=== PATIENT | female | born 1945 | race Caucasian/White ===

== ENCOUNTER → 2017-06-10 | Outpatient (CLI) | payer OTHER ==
[~2017-06-10] MED LIST: ASPI81TA28 PO; ATOR10TA82 PO; ATROPINE SULFATE 0.1 MG/ML 5ML SYR ONE; DOBUTamine HCL 12.5 MG/ML 20 ML VIAL ONE; ESCI10TA17 PO; METOPROLOL TARTRATE 1 MG/ML VIAL ONE; PERFLUTREN LIPID MICROSPHERE (DEFINITY) IV ONE
--- NOTE | 2017-06-10 17:30 | DOBUTAMINE ECHO ---
*NOTICE TO RECEIVING [employer] This information is strictly Confidential and protected under [place] law. [place] law prohibits you from making any further disclosure of this information unless further disclosure is expressly permitted by the written consent of the person to whom it pertains or is authorized by law. A general authorization for the release of medical or other information is not sufficient for this purpose. Hospital accepts no responsibility if the information is made available to any other person, INCLUDING THE PATIENT. Interpretation Summary * Name: SHWETA LEES Study Date: 06/10/2017 10:21 AM BP: 152/69 mmHg * Patient Location: [facility] HR: 59 * : 1945 (M/d/yyy) Gender: Female Height: 62 in * Age: 72 yrs Ethnicity: [place] Weight: 165 lb * Ordering Physician: Leonid Chong * Referring Physician: MACIE * Performed By: Delisa Varela RDCS * * Reason For Study: FATIGUE, WEAKNESS * BSA: 1.8 m2 * -- Conclusions -- * There is borderline concentric left ventricular hypertrophy. * Left ventricular systolic function is normal. * Grade I diastolic dysfunction, (abnormal relaxation pattern). * Normal dobutamine echocardiogram without evidence of inducible ischemia * Brief episode of SVT with dobutamine infusion Procedure Details * A contrast injection of Definity was performed to improve assessment of LV function. * Contrast was injected into an intravenous site in the right arm. * One vial of Definity ultrasound contrast was diluted in normal saline to a total volume of 10 ml. A total of '4' ml of solution was administered during imaging. * Lot # [id number] of Definity utilized for procedure. * Expiration date 1 AUG 10. * The attending nurse who injected the contrast agent was SELENE AKINS RN. Left Ventricular Findings with Stress * Normal dobutamine echocardiogram without evidence of inducible ischemia Brief episode of SVT with dobutamine infusion Left Ventricle * The left ventricle is normal in size. * There is borderline concentric left ventricular hypertrophy. * Ejection Fraction = 55-60%. * Left ventricular systolic function is normal. * Grade I diastolic dysfunction, (abnormal relaxation pattern). * The left ventricular wall motion is normal at rest. Right Ventricle * The right ventricle is normal in size and function. * The right ventricular systolic function is normal as assessed by tricuspid annular plane systolic excursion (TAPSE) (normal >1.5 cm). Atria * The left atrial size is normal. * Right atrial size is normal. Mitral Valve * The mitral valve leaflets appear thickened, but open well. * Significant mitral regurgitation is absent. Tricuspid Valve * The tricuspid valve is not well visualized, but is grossly normal. * Significant tricuspid regurgitation is absent. Aortic Valve * The aortic valve is normal in structure and function. * No hemodynamically significant valvular aortic stenosis. * There is no significant aortic regurgitation. Great Vessels * The aortic root is normal size. Pericardium * There is no pericardial effusion. Stress Parameters * Normal baseline electrocardiogram. * Stress ECG: No ST changes. No arrhythmias. * There was development of a brief supraventricular tachycardia during dobutamine infusion * Rest heart rate was '59' BPM. * Rest blood pressure was '152/69' * Maximum heart rate achieved was 137 bpm. * Maximum heart rate was 91 % of maximum age-predicted heart rate. * Maximum blood pressure was '211/58' * Maximum Dobutamine infusion rate was '30' mcg/kg/min. * A total of .25 mg of intravenous Atropine was used to supplement Dobutamine for heart rate response. * Dobutamine infusion was terminated due to achieving target heart rate * A total of 5 mg of IV Metoprolol was administered to reverse Dobutamine-induced tachycardia. Left Ventricular Findings with Stress * Baseline EKG was normal There was development of an SVT during dobutamine infusion There were no significant ST segment changes during dobutamine infusion Baseline echocardiographic images demonstrated normal LV function wall motion With dobutamine infusion there was appropriate augmentation of all montiel without development of wall motion abnormalities No symptoms reported during the test MMode 2D Measurements and Calculations IVSd 1.1 cm IVSs 1.3 cm LVIDd 4.4 cm LVIDs 3.1 cm LVPWd 1.3 cm LVPWs 1.7 cm IVS/LVPW 0.86 FS 28.6 % EDV(Teich) 86.0 ml ESV(Teich) 38.3 ml EF(Teich) 55.4 % EDV(cubed) 83.1 ml ESV(cubed) 30.2 ml EF(cubed) 63.7 % % IVS thick 17.7 % % LVPW thick 28.5 % LV mass(C)d 193.6 grams LV mass(C)dI 109.9 grams/m\S\2 LV mass(C)s 167.0 grams LV mass(C)sI 94.8 grams/m\S\2 SV(Teich) 47.7 ml SI(Teich) 27.1 ml/m\S\2 SV(cubed) 52.9 ml SI(cubed) 30.0 ml/m\S\2 Ao root diam 3.4 cm Ao root area 8.8 cm\S\2 LA dimension 3.5 cm LA/Ao 1.1 LVAd ap4 30.2 cm\S\2 LVLd ap4 7.9 cm EDV(MOD-sp4) 93.7 ml EDV(sp4-el) 97.3 ml LVAs ap4 17.3 cm\S\2 LVLs ap4 6.7 cm ESV(MOD-sp4) 39.8 ml ESV(sp4-el) 38.2 ml EF(MOD-sp4) 57.5 % EF(sp4-el) 60.7 % LVAd ap2 29.6 cm\S\2 LVLd ap2 8.0 cm EDV(MOD-sp2) 94.1 ml EDV(sp2-el) 92.8 ml LVAs ap2 17.2 cm\S\2 LVLs ap2 6.7 cm ESV(MOD-sp2) 38.6 ml ESV(sp2-el) 37.5 ml EF(MOD-sp2) 59.0 % EF(sp2-el) 59.5 % LVLd %diff 0.98 % EDV(MOD-bp) 94.0 ml LVLs %diff 0.69 % ESV(MOD-bp) 39.6 ml EF(MOD-bp) 57.9 % SV(MOD-sp4) 53.9 ml SI(MOD-sp4) 30.6 ml/m\S\2 SV(MOD-sp2) 55.5 ml SI(MOD-sp2) 31.5 ml/m\S\2 SV(MOD-bp) 54.4 ml SI(MOD-bp) 30.9 ml/m\S\2 SV(sp4-el) 59.1 ml SI(sp4-el) 33.6 ml/m\S\2 SV(sp2-el) 55.2 ml SI(sp2-el) 31.4 ml/m\S\2 Doppler Measurements and Calculations MV E max miguel angel 55.8 cm/sec MV A max miguel angel 76.2 cm/sec MV E/A 0.73 MV dec time 0.39 sec Ao V2 max 118.4 cm/sec Ao max PG 5.6 mmHg Ao max PG (full) 3.5 mmHg LV V1 max PG 2.1 mmHg LV V1 max 71.8 cm/sec
== END | disposition home or self-care (01) ==
LOC: C.CPL 10:16
PROVIDERS: ATTEND Internal Medicine Critical Care Medicine
DX: E78.5 Hyperlipidemia, unspecified (principal); J98.4 Other disorders of lung; R53.1 Weakness; R53.83 Other fatigue

== ENCOUNTER → 2017-06-16 | Outpatient (CLI) | payer OTHER ==
[~2017-06-16] MED LIST changes: -ATROPINE SULFATE 0.1 MG/ML 5ML SYR ONE; +CLC100 PO; -DOBUTamine HCL 12.5 MG/ML 20 ML VIAL ONE; -METOPROLOL TARTRATE 1 MG/ML VIAL ONE; +MISCCAP80; +NICO21DI35 TD; -PERFLUTREN LIPID MICROSPHERE (DEFINITY) IV ONE; +ULT/50 PO
--- NOTE | 2017-06-16 11:04 | DIAGNOSTIC IMAGING REPORT ---
CHEST SUPERDIMENSIONAL WITHOUT CLINICAL HISTORY: PULMONARY NODULE abnormal PET scan TECHNIQUE: Transaxial acquisition with multi axial reformatted images COMPARISON STUDY: PET scan 05/09/2007 Gabriel García FINDINGS: 2 mm right apical nodule not seen on the patient's prior PET scan slight interval increase in size of a irregular nodular density superior segment left lower lobe currently measuring 11 mm. Slight peribronchial thickening throughout both hemithoraces. Minimal dependent basilar bronchiectasis. No significant mediastinal or hilar adenopathy. Slight peribronchial thickening throughout both hemithoraces considered chronic. IMPRESSION: 1. Slight increase in size of a irregular parenchymal nodule superior segment left lower lobe currently measuring 11 mm. 2. 2 mm right apical nodule of uncertain significance. This was not seen in the prior study which potentially is related to technical factors. 3. Mild stable peribronchial thickening. The above report was generated using voice recognition software. It may contain grammatical, syntax or spelling errors. Electronically signed by: Andre Bhatti M.D. 06/16/2017 11:03 AM Dictated Date/Time: 06/16/2017 10:57 AM
== END | disposition home or self-care (01) ==
LOC: C.CTS 10:40
PROVIDERS: ATTEND Surgery
DX: R91.1 Solitary pulmonary nodule (principal)

== ENCOUNTER 2017-06-17 06:34 | Inpatient (IN) | payer OTHER ==
[2017-06-11 11:14] VITALS: Ht 157.5 cm; Wt 75.0 kg
[2017-06-17] VITALS (12 sets, daily range): BP systolic 117–155; BP diastolic 63–86; PULSE 62–77; TEMP 36.5–37.1; O2SAT 91–96
[~2017-06-17] VITALS: Ht 157.5 cm; Wt 75.0 kg
[~2017-06-17 06:34] MED LIST changes: -CLC100 PO; +LACTATED RINGER'S 1000ML 1,000 ML IV SCH; -MISCCAP80; -NICO21DI35 TD; -ULT/50 PO
[2017-06-17] MEDS ORDERED: EpHEDrine SULFATE INJ 50 MG/ML AMP IV PRN (06:45)
[2017-06-17] MEDS ORDERED: ONDANSETRON INJ 2 MG/ML 2 ML VIAL IV PRN ×2 (06:45→10:45)
[2017-06-17] MEDS ORDERED: ATROPINE SULFATE 0.1 MG/ML 5ML SYR IV PRN (06:45)
[2017-06-17] MEDS ORDERED: FENTANYL CITRATE INJ 50 MCG/1 ML 2 ML VIAL IV PRN (06:45)
[2017-06-17] MEDS ORDERED: MISCCAP80 ×2 (07:09)
[2017-06-17] MEDS ORDERED: NICO21DI35 TD ×2 (07:34)
[2017-06-17] MEDS ORDERED: LIDOCAINE HCL 2% 2 ML VIAL (20MG/ML) ONE ×2 (07:45→07:54)
[2017-06-17] MEDS ORDERED: PROPOFOL IV EMULSION 10 MG/ML 20 ML VIAL IV ONE (07:54)
[2017-06-17] MEDS ORDERED: DEXAMETHASONE SOD INJ 4 MG/ML VIAL ONE (07:54)
[2017-06-17] MEDS ORDERED: ROCURONIUM BROMIDE 10 MG/ML 5 ML VIAL IV ONE (07:54)
[2017-06-17] MEDS ORDERED: FENTANYL CITRATE INJ 50 MCG/1 ML 2 ML VIAL ONE ×2 (07:54→10:33)
[2017-06-17] MEDS ORDERED: ONDANSETRON INJ 2 MG/ML 2 ML VIAL ONE (07:54)
--- NOTE | 2017-06-17 08:20 | History & Physical Bridge Note ---
H&P Re-Evaluation Bridge Note: I have examined the patient, reviewed the History & Physical and in the interval since the performance of the History & Physical I have noted the following changes of clinical significance: No changes noted
[2017-06-17] MEDS ORDERED: EpHEDrine SULFATE 50MG/5ML SYR ONE (09:24)
[2017-06-17] MEDS ORDERED: CLINDAMYCIN PHOS 150 MG/ML 2 ML VIAL ONE (09:24)
[2017-06-17] MEDS ORDERED: SODIUM CHLORIDE 0.9% PF 50 ML VIAL ONE (09:36)
[2017-06-17] MEDS ORDERED: BUPIVACAINE LIPOSOME 1/3% 266 MG/20 ML VIAL INFIL ONE (09:37)
[2017-06-17] MEDS ORDERED: NEOSTIGMINE METHYLSULFATE 5 MG/5 ML SYR ONE (10:33)
[2017-06-17] MEDS ORDERED: GLYCOPYRROLATE INJ 0.2 MG/ML VIAL ONE (10:33)
--- NOTE | 2017-06-17 10:33 | DIAGNOSTIC IMAGING REPORT ---
CHEST 1 VIEW FRONTAL CLINICAL HISTORY: 72 years-old Female presenting with JATINDER BRONCH AND FIDUCIAL MARKERS. TECHNIQUE: 3 fluoroscopic spot image(s) obtained as part of an intraoperative procedure. COMPARISON: Chest CT performed on 06/16/2017. FINDINGS/IMPRESSION: Intraoperative images of the left chest with a fiducial marker. The wedge resection specimen contains the fiducial marker. Please see surgical report for further details. Fluoroscopy dosage (mGy): 11.71. Fluoroscopy time: 80.4 seconds. Number of fluoroscopic spot images: 3. Electronically signed by: Enoch Valera M.D. 06/17/2017 10:32 AM Dictated Date/Time: 06/17/2017 10:31 AM
[2017-06-17] MEDS ORDERED: ESMOLOL HCL 10 MG/ML 10 ML VIAL ONE (10:40)
[2017-06-17] MEDS ORDERED: OXYCODONE HCL IR 5 MG TAB (IMMEDIATE RELEASE) PO PRN (10:45)
[2017-06-17] MEDS ORDERED: MoRPHine SULFATE 2 MG/ML CARP IV PRN (10:45)
--- NOTE | 2017-06-17 10:49 | OPERATIVE REPORT ---
DATE OF OPERATION: 06/17/2017 PREOPERATIVE DIAGNOSES: 1. Mass superior segment left lower lobe. 2. History of vulvar squamous cell carcinoma. POSTOPERATIVE DIAGNOSIS: Same. PROCEDURE: Electromagnetic navigational bronchoscopy with marking of his left lower lobe lesion with fiducial marker and methylene blue dye. SURGEON: Dr. Haddad. ACCOUNTING PROFESSOR: Senthil Butterfield, respiratory therapy. ANESTHESIA: General anesthesia with endotracheal intubation. INDICATION FOR PROCEDURE AND FINDINGS: Kim Elam is a 72-year-old smoker who has vulvar carcinoma and underwent a vulvectomy and is scheduled for chemotherapy and radiation and her metastatic workup revealed a mass in her left lower lobe. She is an active smoker. I brought the patient to the operating room and marked her with a fiducial marker in preparation for wedge resection of this mass. PROCEDURE: The patient was brought to the operating room and laid in supine position. General anesthesia induced and endotracheal intubation was performed. After appropriate timeout had been called and clindamycin had been given the fiberoptic bronchoscope was placed through the 8.5 endotracheal tube. She had no endobronchial lesions and really no bleeding and no mucus. The navigational probe was used to register her airways. This was done without incident and then we navigated out to the mass without difficulty where we will get right out to this and with the use of an endobronchial radial ultrasound probe we were able to see we were right in the mass. I left a fiducial marker here under fluoroscopic guidance. I then injected 0.5 mL of methylene blue dye towards the pleura. This was done without incident. We then removed the bronchoscope and the navigational probe. We had no bleeding with this. She tolerated it well and is ready for her wedge resection now. I attest to the content of the Intraoperative Record and any orders documented therein. Any exception s are noted below.
--- NOTE | 2017-06-17 11:19 | DIAGNOSTIC IMAGING REPORT ---
CHEST ONE VIEW PORTABLE HISTORY: s/p wedge resection COMPARISON: Chest CT 06/16/2017. FINDINGS: Left-sided chest tube terminates within the left upper lung zone. Small left apical pneumothorax with a pleural gap of 7 mm. Lobular appearance to left hilum with associated suture material favors postoperative change. A few linear densities at the left lung base. No right-sided pneumothorax. The heart is mildly enlarged. IMPRESSION: Small left pneumothorax. Left-sided chest tube appears to be in good position. Electronically signed by: Josh Rodríguez M.D. 06/17/2017 11:17 AM Dictated Date/Time: 06/17/2017 11:16 AM
--- NOTE | 2017-06-17 11:26 | OPERATIVE REPORT ---
DATE OF OPERATION: 06/17/2017 PREOPERATIVE DIAGNOSIS: Cavitary lesion, superior segment of left lower lobe. POSTOPERATIVE DIAGNOSIS: Same. PROCEDURE: Wedge resection of superior segment of left upper lobe after marking with fiducial marker of methylene blue dye. SURGEON: Dr. Haddad. ENDLESS STEAMER TENDER: MOHSEN Boyd (Mr. Santos was in the room and working the camera and was the first assisted was there for the duration. He also closed the incisions. ANESTHESIA: General anesthesia endotracheal intubation using double lumen tube. SPECIFICS OF PROCEDURE: Kim Elam is a 72-year-old active smoker who has vulvar carcinoma and this squamous cell carcinoma was resected with a vulvectomy and she is scheduled to undergo chemotherapy and radiation and a workup showed a cystic lesion and we marked this with a fiducial marker of methylene blue dye and then turned her and did an uncomplicated thoracoscopy with two 5 mm ports and a 12 mm port. There was methylene blue in the lung, but it did not localize it well. We then used fluoroscopy and could see that the marker was included in our biopsy specimen and fired stapler several times and removed this. I discussed this with the pathology and there indeed was a cystic lesion in this wedge resection. She tolerated it well. DESCRIPTION OF THE PROCEDURE: The patient was brought to the operating room and laid in supine position. She had undergone her electromagnetic navigational bronchoscopy and her single lumen tube was switched over to a double lumen tube, arterial line was placed and she was placed in the right lateral decubitus position and her left chest was prepped and draped in usual sterile fashion. A 5 mm port was placed in the fourth interspace anterior latissimus dorsi muscle and another 5 mm port was placed 2 interspaces below the tip of the scapula and then a 12 mm port was placed about the 7th interspace anteriorly. Carbon dioxide was insufflated and we could see that there were no adhesions. I saw no real abnormality and in fact her lungs were quite pink and healthy in appearance. I then could see that there was methylene blue dye on the fairly enlarged segment of the lower lobe and this did not help us localize it. I then brought the fluoroscopy in and I was able to see that we had this fiducial marker in our biopsy specimen. I fired an Endo-ELADIO stapler several times and removed a sizable portion of the left lower lobe. Our fluoroscopy confirmed that we had removed the fiducial marker. This was sent off for frozen section after removing it with an Endobag. 266 mg of Exparel was mixed with 40 mL of normal saline for a total of 60 mL of solution and injected from the 2nd to the 11th rib with an intercostal block intrathoracically. While waiting for the frozen section, the inferior pulmonary ligament was taken down and I biopsied the level 8 and level 9 lymph nodes. There was really no bleeding here. The pathologist called and stated they did indeed have the cystic lesion, although we did not have a diagnosis at the time of this dictation. A 24-Mongolian chest tube was placed in the anterior thoracoscopy port and directed towards the apex and held in place with a heavy silk suture. A 4-0 Monocryl was used to close the incisions. She tolerated well, was extubated in the room with negligible blood loss. I attest to the content of the Intraoperative Record and any orders documented therein. Any exceptions are noted below. JONO
--- NOTE | 2017-06-17 12:08 | Anesthesiology Progress Note ---
Anesthesia Post Op Note Date & Time Jun 17, 2017 at 12:08 Vital Signs Pain Intensity: 0 Vital Signs Past 12 Hours Date Time Temp Pulse Resp B/P (MAP) Pulse Ox O2 Delivery O2 Flow Rate FiO2 06/17/17 11:40 36.2 81 21 129/65 94 Nasal Cannula 3 06/17/17 11:30 81 19 139/61 91 Nasal Cannula 3 06/17/17 11:20 84 21 127/73 95 Oxymask 10 06/17/17 11:10 81 24 135/67 97 Oxymask 10 06/17/17 11:03 36.0 78 19 152/83 97 Oxymask 10 06/17/17 07:13 36.5 65 18 155/86 96 Room Air Notes Mental Status: alert / awake / arousable, participated in evaluation Pt Amnestic to Procedure: Yes Nausea / Vomiting: adequately controlled Pain: adequately controlled Airway Patency, RR, SpO2: stable & adequate BP & HR: stable & adequate Hydration State: stable & adequate Anesthetic Complications: no major complications apparent
[2017-06-17] MEDS: ACETAMINOPHEN IV 1,000 MG in EMPTY BAG 0 ML IV SCH ×2 (13:09→20:40)
[2017-06-17] MEDS: KETOROLAC TROMETHAMINE 15 MG/ML VIAL IV. SCH ×2 (13:09→20:38)
[2017-06-17] MEDS: METOCLOPRAMIDE HCL INJ 5 MG/ML 2 ML VIAL IV. SCH ×2 (14:18→20:55)
[2017-06-17] MEDS: CLINDAMYCIN IV 900 MG in DEXTROSE 5% 100ML 100 ML IV SCH ×2 (14:29→20:39)
[2017-06-17] MEDS: D5W AND 1/2NSS 1,000 ML IV SCH (20:17)
[2017-06-17] MEDS: HYDROCORTISONE 1% CR 30 GM TUBE EXT SCH (20:38)
[2017-06-17] MEDS ORDERED: NURSING DECISION MEDICATION ORDER SCH (20:45)
[2017-06-17] MEDS: DOCUSATE SODIUM 100 MG CAP PO SCH (20:51)
[2017-06-17] MEDS ORDERED: ATORVASTATIN 10 MG TAB PO SCH (21:00)
[2017-06-18 03:20] VITALS: BP 138/79; PULSE 88; TEMP 37.1; O2SAT 98
[2017-06-18] MEDS: ACETAMINOPHEN IV 1,000 MG in EMPTY BAG 0 ML IV SCH (04:10)
[2017-06-18] MEDS: KETOROLAC TROMETHAMINE 15 MG/ML VIAL IV. SCH (04:10)
[2017-06-18] MEDS: METOCLOPRAMIDE HCL INJ 5 MG/ML 2 ML VIAL IV. SCH (05:56)
[2017-06-18] MEDS: D5W AND 1/2NSS 1,000 ML IV SCH (05:57)
[2017-06-18 06:26] LABS: PROTHROMBIN TIME (PATIENT) 10.5 SECONDS (9.0-12.0)
[2017-06-18 06:54] LABS: CREATININE 0.73 mg/dl (0.60-1.20)
--- NOTE | 2017-06-18 07:04 | DIAGNOSTIC IMAGING REPORT ---
CHEST ONE VIEW PORTABLE CLINICAL HISTORY: s/p wedge resection postoperative evaluation COMPARISON STUDY: 06/17/2017 FINDINGS: Left-sided chest tube is unchanged in location and appearance. Minimal left apical pneumothorax slightly diminished compared to the prior study with a current maximum pleural separation of 5 mm. Parenchymal density adjacent to the course of the mid left chest tube in the left perihilar region similar compared to the prior study given differences in rotation. Right lung is considered clear. IMPRESSION: Minimal left apical pneumothorax with a current maximum pleural separation of 5 mm. Study otherwise is unchanged. This represents a slight interval improvement compared to the prior study with the prior study demonstrating a 7 mm pleural separation The above report was generated using voice recognition software. It may contain grammatical, syntax or spelling errors. Electronically signed by: Andre Bhatti M.D. 06/18/2017 7:02 AM Dictated Date/Time: 06/18/2017 6:59 AM
[2017-06-18 07:12] VITALS: BP 126/78; PULSE 62; TEMP 36.7; O2SAT 91
[2017-06-18] MEDS ORDERED: ULT/50 PO ×4 (07:57→08:00)
[2017-06-18] MEDS ORDERED: CLC100 PO ×2 (07:57)
[2017-06-18 08:03] VITALS: BP 126/78; PULSE 62; TEMP 36.7; O2SAT 91
--- NOTE | 2017-06-18 08:05 | Discharge Instructions ---
Discharge Instructions Date of Service Jun 18, 2017. Admission Reason for Admission: Lung Mass Discharge Discharge Diagnosis / Problem: Lung Mass Discharge Goals Goal(s): Learn about illness Activity Recommendations Activity Limitations: as noted below Lifting Limitations: none 1. Dop not drive until cleared to do so by Dr. Haddad. 2. You may remove dressings in 3 days and shower thereafter. No tub baths. . Instructions / Follow-Up Instructions / Follow-Up 1. Office appointment with Dr. Haddad in 1 week. Office will call you with date and time of appointment. Go to hospital one hour before appointment to have a chest x-ray taken. Current Hospital Diet Patient's current hospital diet: Regular Diet Discharge Diet Recommended Diet: Regular Diet Procedures Procedures Performed: Navigational Bronchoscopy with Fiducial Markers with Methylene Blue Dye, Left Thoracoscopic Wedge Resection Pending Studies Studies pending at discharge: no Medical Emergencies . Who to Call and When: Medical Emergencies: If at any time you feel your situation is an emergency, please call 911 immediately. . Non-Emergent Contact Non-Emergency issues call your: Surgeon Call Non-Emergent contact if: you have a fever, your pain is not controlled, wound has increased drainage . "Provider Documentation" section prepared by Delon Santos. . VTE Core Measure Inpt VTE Proph given/why not?: Enoxaparin (Lovenox)SQ
--- NOTE | 2017-06-18 08:16 | DIAGNOSTIC IMAGING REPORT ---
CHEST ONE VIEW PORTABLE HISTORY: Chest tube removal COMPARISON: Chest 06/18/2017. FINDINGS: Tiny left apical pneumothorax is decreased in size. This now demonstrates a pleural gap of 2 mm. A few linear densities the left lung base suggest subsegmental atelectasis. Suture material and a small hazy airspace opacity within the left midlung zone remain unchanged and likely represent postoperative change. The left chest tube has been removed. The heart is stable in size. IMPRESSION: Status post removal of the left-sided chest tube. Tiny left apical pneumothorax is decreased in size Electronically signed by: Josh Rodríguez M.D. 06/18/2017 8:15 AM Dictated Date/Time: 06/18/2017 8:09 AM
[2017-06-18] MEDS: DOCUSATE SODIUM 100 MG CAP PO SCH (08:47)
[2017-06-18] MEDS: HYDROCORTISONE 1% CR 30 GM TUBE EXT SCH (08:47)
[2017-06-18] MEDS ORDERED: NICOTINE 21 MG/24 HR TDSY TD SCH (09:00)
[2017-06-18] MEDS ORDERED: ENOXAPARIN 40 MG/0.4 ML SYR SQ SCH (09:00)
[2017-06-18] MEDS ORDERED: ESCITALOPRAM OXALATE 10 MG TAB PO SCH (09:00)
[2017-06-18] MEDS ORDERED: ASPIRIN 81 MG ECTAB PO SCH (09:00)
--- NOTE | 2017-06-18 10:00 | DISCHARGE SUMMARY ---
DATE OF DISCHARGE: 06/18/2017 DISCHARGE DIAGNOSES: 1. Cystic mass superior segment left lower lobe. 2. History of squamous cell carcinoma of the vulva. 3. History of active cigarette smoking. HOSPITAL COURSE: Kim Elam is a 72-year-old female who is active cigarette smoking, was found to have a squamous cell carcinoma of her vulva, underwent a vulvectomy about a month ago at [place]. She is scheduled for radiation therapy postoperatively as well as some chemotherapy. Family is a bit unsure of this and she has not been evaluated by medical oncologist at this point. She is scheduled to see Dr. Rashaun Silva. I had a long talk with the patient and his family, we elected to proceed with wedge resection for complete staging and to see what the etiology of this mass was. On 06/17/2017 the patient underwent electromagnetic navigational bronchoscopy. We marked this mass with a fiducial marker and methylene blue dye. Upon doing the thoracoscopy it could be seen that the methylene blue did not really help much as it was a broad area had been sustained but with the fiducial marker, we were able to localize this and wedged the mass out. Frozen section showed a cystic mass that was very small; however, the cells do appear abnormal and I spoke to Dr. Muro and he felt that this may well represent metastatic squamous cell carcinoma, which will be consistent with her clinical presentation. We will have to wait and see what the final slides show. She did very well overnight and was on room air, ambulating in the hallway, tolerating a regular diet. Her x-ray looked great. We pulled her chest tube on the morning after surgery as she had no air leak and very little drainage. Her post-procedure x-ray showed no evidence of pneumothorax or pleural effusion. She was discharged home on postop day 1. I will see her back in the office next week with an x-ray and to do a wound check and give her her pathology results.
== END 2017-06-18 09:55 | disposition home or self-care (01) | DRG 165 ==
LOC: C.ACU 06:34 → C.MSN 08:20 → ENRESERV 11:25
PROVIDERS: ADMIT Surgery; ATTEND Surgery
PROC: 0BBG4ZZ Excision of Left Upper Lung Lobe, Percutaneous Endoscopic Approach (ICD-10-PCS; principal; 2017-06-17 08:45)
DX: R91.8 Other nonspecific abnormal finding of lung field (principal); F17.210 Nicotine dependence, cigarettes, uncomplicated; F41.9 Anxiety disorder, unspecified; E78.5 Hyperlipidemia, unspecified; Z86.73 Personal history of transient ischemic attack (TIA), and cerebral infarction without residual deficits; Z80.0 Family history of malignant neoplasm of digestive organs; R91.1 Solitary pulmonary nodule

== ENCOUNTER → 2017-06-23 | Outpatient (CLI) | payer OTHER ==
[~2017-06-23] MED LIST changes: +AMOX875T PO; +CLC100 PO; -LACTATED RINGER'S 1000ML 1,000 ML IV SCH; +MISCCAP80; +NICO21DI35 TD; +PRED10TA PO; +ULT/50 PO
--- NOTE | 2017-06-23 13:07 | DIAGNOSTIC IMAGING REPORT ---
CHEST 2 VIEWS ROUTINE CLINICAL HISTORY: 72 years-old Female presenting with PULMONARY NODULE. TECHNIQUE: PA and lateral views of the chest were obtained. COMPARISON: 06/18/2017. FINDINGS: Atherosclerosis of the aortic arch. Cardiac silhouette normal in size. Bandlike opacities at the left lung base as well as a potential suture margin in the left mid lung. No pleural effusion or pneumothorax. Degenerative changes of the thoracic spine. Cholecystectomy clips noted. IMPRESSION: 1. Postsurgical changes of the left lung with minimal atelectasis. No acute cardiopulmonary disease. Electronically signed by: Enoch Valera M.D. 06/23/2017 1:05 PM Dictated Date/Time: 06/23/2017 1:01 PM
== END | disposition home or self-care (01) ==
LOC: C.RAD 12:35
PROVIDERS: ATTEND Surgery
DX: R91.1 Solitary pulmonary nodule (principal)

== ENCOUNTER 2017-07-16 05:30 | Inpatient (IN) | payer OTHER ==
[~2017-07-16] VITALS: Ht 157.5 cm; Wt 74.9 kg
[2017-07-16] VITALS (16 sets, daily range): BP systolic 104–147; BP diastolic 50–75; PULSE 65–80; TEMP 36.5–36.8; O2SAT 90–96
[~2017-07-16 05:30] MED LIST changes: -AMOX875T PO; -CLC100 PO; -PRED10TA PO; -ULT/50 PO
[2017-07-16] MEDS ORDERED: LACTATED RINGER'S 1000ML 1,000 ML IV SCH (06:00)
[2017-07-16] MEDS ORDERED: FENTANYL CITRATE INJ 50 MCG/1 ML 2 ML VIAL ONE ×2 (06:51→08:48)
[2017-07-16] MEDS ORDERED: MIDAZOLAM HCL 1 MG/ML 2ML VIAL ONE (06:51)
[2017-07-16] MEDS ORDERED: SODIUM CHLORIDE 0.9% PF 50 ML VIAL ONE ×2 (06:58→06:59)
[2017-07-16] MEDS ORDERED: BUPIVACAINE LIPOSOME 1/3% 266 MG/20 ML VIAL INFIL ONE (06:58)
[2017-07-16] MEDS ORDERED: SODIUM CHLORIDE 0.9% INJ 10 ML VIAL ONE (06:59)
[2017-07-16] MEDS ORDERED: BUPIVACAINE 0.5 % 5 MG/1 ML MPF 30ML VIAL ONE (06:59)
[2017-07-16] MEDS ORDERED: GENTAMICIN SULFATE 40 MG/ML 2 ML VIAL ONE (08:53)
[2017-07-16] MEDS ORDERED: VANCOMYCIN HCL 1000MG/20ML VIAL ONE (08:53)
[2017-07-16] MEDS ORDERED: NEOSTIGMINE METHYLSULFATE 5 MG/5 ML SYR ONE (09:05)
[2017-07-16] MEDS ORDERED: CEFAZOLIN SOD 1 GM VIAL ONE (09:05)
[2017-07-16] MEDS ORDERED: DEXAMETHASONE SOD INJ 4 MG/ML VIAL ONE (09:05)
[2017-07-16] MEDS ORDERED: LIDOCAINE HCL 2% 2 ML VIAL (20MG/ML) ONE (09:05)
[2017-07-16] MEDS ORDERED: PROPOFOL IV EMULSION 10 MG/ML 20 ML VIAL IV ONE (09:05)
[2017-07-16] MEDS ORDERED: GLYCOPYRROLATE INJ 0.2 MG/ML VIAL ONE (09:05)
[2017-07-16] MEDS ORDERED: ONDANSETRON INJ 2 MG/ML 2 ML VIAL ONE ×2 (09:05→10:46)
[2017-07-16] MEDS ORDERED: PHENYLEPHRINE HCL INJ 10 MG/ML VIAL ONE (09:09)
[2017-07-16] MEDS ORDERED: EpHEDrine SULFATE INJ 50 MG/ML AMP IV PRN (09:15)
[2017-07-16] MEDS ORDERED: HYDROmorphone INJ 0.5 MG/0.5 ML SYR IV PRN (09:15)
[2017-07-16] MEDS ORDERED: ATROPINE SULFATE 0.1 MG/ML 5ML SYR IV PRN (09:15)
[2017-07-16] MEDS ORDERED: ONDANSETRON INJ 2 MG/ML 2 ML VIAL IV PRN ×2 (09:15→11:45)
[2017-07-16] MEDS ORDERED: SURGICEL ABSORB HEMOSTAT 2IN X 14IN TOP ONE (09:24)
[2017-07-16] MEDS ORDERED: EpHEDrine SULFATE 50MG/5ML SYR ONE (10:58)
--- NOTE | 2017-07-16 11:17 | [facility] Post Operative Brief Note ---
Immediate Operative Summary Operative Date Jul 16, 2017. Pre-Operative Diagnosis Primary carcinoma squamous cell left lower lobe Post-Operative Diagnosis Same Procedure(s) Performed Left Video Assisted Thoracoscopy with Lower Lobectomy and Mediastinal Lymphadenectomy with Application of Stimulan Beads Surgeon Dr Haddad Sql Architect Surgeon(s) None Estimated Blood Loss 50ml Findings Consistent with Post-Op Diagnosis Specimens A. L11 lymph node X2 B. L12 lymph node C. L10 lymph node D. Level 5 lymph node Frozen section #1 left lower lobe for bronchial margins sent out at 1030. Results phoned to Dr Haddad from pathologist. Anesthesia Type General
[2017-07-16] MEDS ORDERED: OXYCODONE/ACETAMINOPHEN 5-325 TAB PO PRN (11:45)
[2017-07-16] MEDS ORDERED: MoRPHine SULFATE 2 MG/ML CARP IV PRN (11:45)
[2017-07-16] MEDS ORDERED: LARYING-O-JET KIT (LTA) ONE (12:03)
[2017-07-16] MEDS: FENTANYL CITRATE INJ 50 MCG/1 ML 2 ML VIAL IV PRN ×4 (12:30→12:46)
[2017-07-16] MEDS ORDERED: ALBUT/IPRATROP 3MG/0.5MG NEB 3 ML VIAL INH PRN (12:45)
--- NOTE | 2017-07-16 12:53 | DIAGNOSTIC IMAGING REPORT ---
CHEST ONE VIEW PORTABLE CLINICAL HISTORY: Lobectomy. Lung cancer. COMPARISON STUDY: Chest radiograph June 23, 2017. FINDINGS: A left chest tube is in place. There is left mid and lower lung airspace opacity. Left lung surgical staple line is noted. There is a suspected small left apical pneumothorax. There is extensive gas within the left breast. Radiodense beads are noted within the operative bed of the left chest wall/breast. There is a suspected small left pleural effusion. In addition, note is made of a tube which projects over the right lower lung. This likely extends to the right mainstem bronchus and is within a segmental bronchus of the right lower lobe. There is no right pneumothorax. IMPRESSION: 1. Right-sided tube, likely extending through the right mainstem bronchus with tip in a segmental bronchus of the right lower lobe. This finding was discussed with Dr. Haddad. This tube was subsequently removed. 2. Postsurgical findings within the left lung with left lung volume loss, left basilar opacity and a trace left apical pneumothorax with left chest tube in place. Left breast gas with radiodense beads within the operative bed. Electronically signed by: Javier Najera M.D. 07/16/2017 12:51 PM Dictated Date/Time: 07/16/2017 12:42 PM
--- NOTE | 2017-07-16 13:51 | Anesthesiology Progress Note ---
Anesthesia Post Op Note Date & Time Jul 16, 2017 at 13:48 Vital Signs Pain Intensity: 4 Vital Signs Past 12 Hours Date Time Temp Pulse Resp B/P (MAP) Pulse Ox O2 Delivery O2 Flow Rate FiO2 07/16/17 13:05 36.2 74 14 127/66 95 Oxymask 10 07/16/17 13:00 71 10 95 Mask 10.0 07/16/17 12:55 72 14 117/61 95 Oxymask 10 07/16/17 12:45 67 14 120/61 96 Oxymask 10 07/16/17 12:35 67 14 102/65 92 Oxymask 10 07/16/17 12:25 36.5 68 14 118/62 93 Oxymask 10 07/16/17 12:15 70 14 121/65 94 Oxymask 10 07/16/17 12:05 72 14 129/71 94 Oxymask 10 07/16/17 11:55 75 14 134/68 94 Oxymask 10 07/16/17 11:47 36.2 79 14 161/80 94 Oxymask 10 07/16/17 06:00 36.8 65 20 147/75 95 Room Air Notes Mental Status: alert / awake / arousable, participated in evaluation Pt Amnestic to Procedure: Yes Nausea / Vomiting: adequately controlled Pain: adequately controlled Airway Patency, RR, SpO2: stable & adequate BP & HR: stable & adequate Hydration State: stable & adequate Anesthetic Complications: no major complications apparent Anesthetic Complications: Please see anesthesia progress note for review of intraop and postoperative course.
--- NOTE | 2017-07-16 14:26 | Anesthesiology Progress Note ---
Anesthesia Progress Note Date of Service Jul 16, 2017. Progress Notes Kim Elam is a 72 you female who presented today for left lower lobectomy with Dr. Haddad. Prior to going to the OR, an arterial line was placed in her left radial artery on the first attempt using the seldinger technique. Prior to placement, the arms was prepped with chlorhexidine and draped. The line was placed sterilely by myself wearing hat, mask, and sterile gloves. The site was infiltrated with 1 cc of 1% lidocaine prior to placement. After threading the catheter there was return of pulsatile BRB. The line was taped in place. After placement, distal perfusion was confirmed in the fingers. The patient tolerated placement without complications. After arterial line placement, the patient was taken to the operating room. ASA monitors were applied and she was preoxygnated. She was induced via IV without complication and was an easy mask. Airway was first intrumented with # 3 glidescope with a grade 1 view of the cords, but the 37 left double lumen tube would not pass smoothly beyond the soft palate. The end of the double lumen was noted to be bloody upon removal. Decision was made to attempt placement with a MAC 3 to allow direct visualization of the soft palate and down to the cords during placement. Again, we were unable to advance the double lumen beyond the soft palate. The airway was noted to be slightly bloody. Prior to this, the airway procedures were performed by the [employer] for the case. At this time, I took over the airway. Decision was made to switch to the fiberoptic to allow placement. Despite multiple attempts, advancement of the fiberoptic beyond the tongue was notable for an abnormal quantity of soft tissue that prevented the fiberoptic from advancing smoothly. I made the decision to visualize again with the glidescope and place a single lumen tube followed by an exchange catheter to enable replacement of the single lumen with the desired double lumen tube. While inserting the glidescope, the airway was notable for a large amount of friable, lobulated tissue that was above the epiglottis and in the region of the vallecula. I suspect that this tissue is what was preventing tube advancement as well as obstructing airway visualization under fiberoptic. I was able to place an 8.0 single lumen and confirmed placement. At this time, I discussed the airway with Dr. Haddad, including the pros and cons of proceeding with the case and possible difficulty with airway swelling complicating extubation. It was felt that the airway was already at risk for swelling due to multiple intubation attempts and that it was best to proceed with double lumen placement and the case. A Cook exchange catheter was advanced through the 8.0 tube and left in place after removal of the single lumen ETT. The 37 left double lumen was then placed over the cook and slowly advanced while visualizing placement with the glidescope. Advancement of the double lumen tube was difficult, but possible using gentle, persistent pressure. Tube placement was then confirmed via the fiberoptic. Throughout the management of the airway, the patient remained easy to ventilate and the patient was continually well saturated. At the end of the case, the patient was opening eyes to voice and pulling TV greater than 300 with an adequate RR. The ETT balloons were deflated and the patient had a leak. Therefore, decision was made to trial extubation. The cook catheter was placed down the tracheal lumen and left in place after removing the double lumen. This was taped to the left side of the patients face. After extubation the patient was responding appropriately and breathing without complications. She was taken to PACU and observed for 30 minutes. Airway was auscultated and notable for lower airway wheezing, but upper airway was clear. The patient maintained adequate oxygenation on oxymask. Decision was made to remove the cook catheter. The Cook catheter was removed without complication. The patient was given a duoneb and observed for another 30 minutes in PACU. She continued to maintain her airway and oxygenated well. Therefore, she was transferred to the SICU for overnight observation. Mercy White MD, PhD
[2017-07-16] MEDS ORDERED: D5W AND 1/2NSS 1,000 ML IV SCH (14:30)
--- NOTE | 2017-07-16 14:58 | OPERATIVE REPORT ---
DATE OF OPERATION: 07/16/2017 PREOPERATIVE DIAGNOSIS: Squamous cell carcinoma of the left lower lobe. POSTOPERATIVE DIAGNOSIS: Same. PROCEDURE: 1. Thoracoscopic left lower lobectomy. 2. Mediastinal lymph node dissection. SURGEON: Dr. Haddad. ANESTHESIA: General anesthesia with endotracheal intubation with a double lumen tube. SPECIFICS OF PROCEDURE: This is a 72-year-old female with a long history of cigarette smoking and who was initially referred to me after she underwent a left lobectomy with lymph node dissection and found to have a metastatic disease and 1 inguinal lymph node. She was scheduled for chemotherapy and radiation, underwent a metastatic workup and was found to have a cystic lesion about a centimeter in diameter in the left lower lobe. I performed a thoracoscopic wedge resection and this was seem to represent a carcinoma on frozen section. 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 I discussed her at the multidisciplinary cancer conference and it was felt that the best thing to do would be to proceed with lobectomy. I had a long talk with the patient and her family, in particularly her daughter. On 07/16/2016, the patient was brought to the operating room and underwent an uncomplicated thoracoscopic left lower lobectomy. I biopsied several lymph nodes including her level 5, 10, 11, and 12. 8 and 9 have been biopsied during the original thoracoscopy. I did not really see a level 6 node. The patient tolerated the procedure well, was extubated in the room. There were some issues initially in intubating her as it appeared she had some fibrous tissue anterior to the epiglottis. We did this with GlideScope and regular laryngoscope as well as a laryngoscope. There was initially some bleeding; however, this settled down and we elected to go ahead and proceed with the procedure. She was extubated in the room, although a tube exchanger in place while we moved to her PACU. She tolerated it well. Her margins were negative on frozen section. DESCRIPTION OF PROCEDURE: The patient brought to the operating room, laid in supine position. General anesthesia was induced. A bronchoscopy was attempted. It was not difficult to see the cords and we could get a single lumen tube where the double lumen tube was difficult. In addition, the patient had bleeding from what appeared to be some friable tissue anterior to the epiglottis. We had a long talk about this with anesthesia and we elected to proceed with the surgery. A tube exchanger was placed on the single lumen and a double lumen tube. When then under GlideScope guidance really without difficulty. The patient was then ready for surgery. She was turned in the right lateral decubitus position and left chest prepped and draped in usual sterile fashion. After appropriate timeout had been given and prophylactic antibiotics administered, the patient had her ports placed. I opened up her anterior at about the eighth interspace, initial incision as well as the fourth interspace incision and lengthened both a bit. I did made another posterior port and did not use her initial posterior port as I felt I wanted to be a bit more posterior. In fact, I went fairly posterior and put a 5 mm port with CO2 and we could see that really there were very little in the way of adhesions, although there were adhesions between the lower lobe and the upper lobe where we had done the biopsy. I also made a fourth port site down in the mid axillary line at about the eighth interspace just above the diaphragm. We then proceeded to take down the inferior pulmonary ligament again. This was actually more of scar tissue. After taking all this down, I was able to see the pulmonary vein quite nicely. We freed it up all the way up to the pulmonary artery posteriorly. I also saw the bronchus. I took out several lymph nodes in this area and this helped free up part of dissection. I then allowed the lung to be pulled posterior and went anterior and freed up the vein from anterior. Endo-ELADIO stapler was fired. This freed up the bronchus quite nicely. I identified the lingual bronchus and fired Endo-ELADIO stapler distal to this. It should be noted because of the prior surgery and incomplete fissure anteriorly, it was difficult to get to the artery. I was able to come up to it from posterior and from inferior and got above it and fired an Endo-ELADIO stapler across the continuation of pulmonary artery to the left lower lobe distal to the lingual branch; however, there was another branch to the superior segment which I divided with an Endo-ELADIO stapler. This freed up; however, there was an incomplete fissure between posteriorly and I ended up firing an Endo-ELADIO stapler several times and finally got the lower lobe out. It was placed in an Endobag and removed. It was sent for bronchial margins on frozen section. While waiting, I dissected out the hilum and got the more anteriorly and biopsied a level 10 node as well as a level 11 and 12. Several of these were sent off. I then dissected out the level 5 node in the aortopulmonary window; however, I did not see any periaortic nodes. We then inflated the lung and tested for leaking and there was none. A 266 mg of Exparel were mixed with 30 mL of 0.5% bupivacaine and about 110 mL of normal saline and then I used a small bore needle to inject from the 2nd to the 11th interspace for intercostal field block. I then injected this with an 18 gauge needle into all 4 of the incisions including the chest tube site. A chest tube was placed in the anterior incision and directed towards the apex under thoracoscopic guidance. Sutured in place with a heavy silk suture. I then used 0 Vicryl to close the muscle layers of the fourth interspace incision as well as a single stitch to reapproximate the muscle and the other 2 incisions. I then mixed 5 mL of pharmaceutical grade calcium sulfate 500 mg of vancomycin and 240 mg of gentamicin. This was performed a plate-like paste, I placed it on a mold. When the bead was set, I then bent the mold and removed them. I then used these to pack each of the incisions prior to closing with 4-0 Monocryl. Included this around the chest tube also. The patient developed evidence of a cellulitis around couple of her incisions after her surgery last month. She has a history of diabetes and eczema and has some skin breakdown and I was a bit concerned due to the fact that she has cellulitis around her 5 mm port in case it lasted about half an hour, a month ago. For this reason, I felt implanting the antibiotic beads would be helpful. A 4-0 Monocryl then used to close the incision and we tested the chest tube as well. There was no evidence of air leak, antimicrobials agents were placed on the incisions and the patient was then extubated after being turned into the supine position. It should be noted that a tube changer was placed through the endotracheal tube and left in place, while she was transported to the postanesthesia care unit. She appeared to be stable. I attest to the content of the Intraoperative Record and any orders documented therein. Any exception s are noted below.
[2017-07-16 15:04] LABS: CREATININE 0.75 mg/dl (0.60-1.20)
[2017-07-16] MEDS: METOCLOPRAMIDE HCL INJ 5 MG/ML 2 ML VIAL IV. SCH ×2 (15:29→22:12)
[2017-07-16] MEDS: KETOROLAC TROMETHAMINE 15 MG/ML VIAL IV. SCH ×2 (15:29→22:12)
--- NOTE | 2017-07-16 16:46 | Critical Care Consultation ---
Critical Care Consultation Date of Consultation: Jul 16, 2017. Attending Physician: Scott Haddad MD Reason for Consultation: Postop monitoring after left lower lobe lobectomy. History of Present Illness 72-year-old female with a history of vulvar squamous cell cancer recently resected at [facility], history of left lower lobe superior segment nodule underwent left lower lobe lobectomy by Dr. Haddad today, the procedure went uneventful however anesthesia were concerned about her airways as she had 2 procedures within a month. And in both procedures it was noted to be a difficult airway. Apparently according to anesthesia, the vocal cords were visualized but the patient does have significant amount of tissue and adhesions in the upper airways and and felt that placement of the ET tube probably related also to abnormal airways. However the patient was extubated successfully without any respiratory compromise. She denies any stridor or shortness of breath. Patient was transferred to the ICU and she was asymptomatic except for pain at the surgical incision which is understandable. She did not have any nausea or vomiting, no abdominal pain, no heartburn reported. She was still feeling dizzy but likely coming out of general anesthesia. The patient did not have any weakness in her arms or legs, she was able to follow commands and answer questions properly, and her oxygen level has been maintained with O2 sats 95%. Apparently, similar situation occurred a month ago when she underwent a procedure with wedge resection. The patient did not have difficulty being extubating but she was difficult to intubate. Currently the patient is hemodynamically stable and does not have any symptoms. Past Medical/Surgical History History of vulvar squamous cell cancer status post resection at [facility] in 2017. Adenocarcinoma of the lung status post left lower lobe lobectomy on this admission. Active smoker. Possible COPD. Borderline diabetes. Hyperlipidemia. Social History Smoking Status: Current Every Day Smoker Allergies Coded Allergies: Latex1 -Allergic Contact Dermititis (Verified Allergy, Unknown, REDNESS, ) NO KNOWN DRUG ALLERGIES (Verified Allergy, Unknown, NONE, 07/14/17) Home Medications Scheduled Aspirin (Aspirin Ec), 81 MG PO QAM Atorvastatin (Lipitor), 10 MG PO HS Escitalopram (Lexapro), 10 MG PO QAM Nicotine (Nicoderm Cq 21MG Patch), 1 PATCH TD DAILY Probiotic Product (Probiotic), PM Current Inpatient Medications Current Inpatient Medications Medications (Trade) Dose Ordered Sig/Rodney Route Start Time Stop Time Status Last Admin Dose Admin Lactated Ringer's 1,000 ml @ 15 mls/hr Q24H IV 07/16/17 06:00 07/17/17 05:59 07/16/17 06:33 15 MLS/HR Enoxaparin Sodium (Lovenox Inj) 40 mg DAILY SQ 07/17/17 10:00 08/16/17 09:59 Dextrose/Sodium Chloride 1,000 ml @ 100 mls/hr Q10H IV 07/16/17 14:30 08/15/17 14:29 07/16/17 15:28 100 MLS/HR Ondansetron HCl (Zofran Inj) 4 mg Q4H PRN IV 07/16/17 11:45 08/15/17 11:44 Docusate Sodium (coLACE CAP) 100 mg BID PO 07/16/17 21:00 08/15/17 20:59 Ketorolac Tromethamine (Toradol Inj) 15 mg Q8H IV. 07/16/17 15:00 07/18/17 07:01 07/16/17 15:29 15 MG Metoclopramide HCl (Reglan Inj) 10 mg Q8 IV. 07/16/17 15:00 08/15/17 14:59 07/16/17 15:29 10 MG Oxycodone/ Acetaminophen (Percocet 5-325mg Tab) Q3H PRN PO 07/16/17 11:45 07/30/17 11:44 Morphine Sulfate (MoRPHine SULFATE INJ) Q1H PRN IV 07/16/17 11:45 07/30/17 11:44 Aspirin (Ecotrin Tab) 81 mg QAM PO 07/17/17 09:00 08/16/17 08:59 Atorvastatin Calcium (Lipitor Tab) 10 mg HS PO 07/16/17 21:00 08/15/17 20:59 Escitalopram Oxalate (Lexapro Tab) 10 mg QAM PO 07/17/17 09:00 08/16/17 08:59 Nicotine (Nicoderm Cq 21MG Patch) 1 patch DAILY TD 07/17/17 09:00 08/16/17 08:59 Albuterol/ Ipratropium (Duoneb) 3 ml ONE PRN INH 07/16/17 12:45 07/17/17 12:44 Review of Systems Constitutional: No fever, No chills, No sweats, No weight loss, No weakness, No fatigue, No problem reported Eyes: No worsening of vision, No eye pain, No redness, No discharge, No diplopia, No problem reported ENT: No hearing loss, No unusual epistaxis, No nasal symptoms, No sore throat, No tinnitus, No dental problems, No trouble swallowing, No problem reported Respiratory: + cough, + shortness of breath Cardiovascular: + chest pain (postop.), No orthopnea, No PND, No edema, No claudication, No palpitations, No problem reported Abdomen: No pain, No nausea, No vomiting, No diarrhea, No constipation, No GI bleeding, No problem reported Musculoskeletal: No joint pain, No muscle pain, No swelling, No calf pain, No problem reported Neurologic: No memory loss, No paralysis, No weakness, No numbness/tingling, No vertigo, No balance problems, No problem reported Psychiatric: No depression symptoms, No anhedonism, No anxiety, No insomnia, No substance abuse, No problem reported Endocrine: No fatigue, No excessive thirst, No excessive urination, No problem reported Physical Exam Date Time Temp Pulse Resp B/P (MAP) Pulse Ox O2 Delivery O2 Flow Rate FiO2 07/16/17 15:00 75 17 113/54 (73) 90 Oxymask 8.0 07/16/17 14:46 80 16 118/62 (80) 93 Oxymask 8.0 114/55 (74) 07/16/17 14:31 77 19 126/60 (82) 96 Oxymask 10.0 07/16/17 14:16 36.5 73 16 115/59 (77) 95 Oxymask 10.0 07/16/17 14:01 113/63 (80) 07/16/17 13:05 36.2 74 14 127/66 95 Oxymask 10 07/16/17 13:00 71 10 95 Mask 10.0 07/16/17 12:55 72 14 117/61 95 Oxymask 10 07/16/17 12:45 67 14 120/61 96 Oxymask 10 07/16/17 12:35 67 14 102/65 92 Oxymask 10 07/16/17 12:25 36.5 68 14 118/62 93 Oxymask 10 07/16/17 12:15 70 14 121/65 94 Oxymask 10 07/16/17 12:05 72 14 129/71 94 Oxymask 10 07/16/17 11:55 75 14 134/68 94 Oxymask 10 07/16/17 11:47 36.2 79 14 161/80 94 Oxymask 10 07/16/17 06:00 36.8 65 20 147/75 95 Room Air General Appearance: well-appearing, no apparent distress Eyes: PERRLA, EOMI ENT: normal nasal exam Neck: normal range of motion, no tenderness, trachea midline, no stridor, supple, no thyromegaly Respiratory: breath sounds normal, clear to auscultation Cardiovasular: normal S1S2, no M/G/R, no murmur Lower Extremities: no edema Neuro: alert, oriented x 3, normal motor exam Laboratory Results Last 24 Hours Test 07/16/17 06:39 07/16/17 12:04 07/16/17 14:40 Bedside Glucose 156 mg/dl 194 mg/dl Prothrombin Time 10.4 SECONDS Prothromb Time International Ratio 1.0 Creatinine 0.75 mg/dl Est Creatinine Clear Calc Drug Dose 66.2 ml/min Estimated GFR () 93.6 Estimated GFR (Non- 80.8 Diagnostic Results I have reviewed all her labs as well as her CAT scan in addition to the chest CT prior to the procedure. In the chest x-ray after the procedure. Sapir segment left lower lobe lesion was noted on the CAT scan with emphysematous changes. No lymphadenopathy. No other lesions. The chest x-ray postop confirm the position of chest tube on the left. Assessment & Plan #1 postop day 0 status post left lower lobe lobectomy for non-small cell lung cancer. #2 vulvar squamous cell carcinoma resection done in 2017. #3 borderline diabetes, compromised by D5W infusion. #4 upper airway anomaly, concerning for abnormal tissues and adhesions according to anesthesia, currently the patient is extubated without difficulty. Plan: #1 we will monitor the patient in the ICU. #2 titrate oxygen to nasal cannula. #3 we will obtain CAT scan of the neck to further evaluate the thyroid gland for possible nodularity compromising the airways. #4 I will continue the patient with bronchodilators. #5. The D5W and start oral intake. #6 I will continue with hydration. #7 if the CAT scan of the neck showed any abnormality, ENT consult can be obtained. #8 glucose control. #9 Case discussed with the staff and with the family at the bedside. In details. Critical care time spent with the patient was 35 minutes.
[2017-07-16] MEDS ORDERED: GLUCAGON FOR INJ 1 MG VIAL SQ PRN (17:45)
[2017-07-16] MEDS ORDERED: DEXTROSE 50% 50 ML SYR IV PRN (17:45)
[2017-07-16] MEDS ORDERED: GLUCOSE 10 TABS/TUBE PO PRN (17:45)
[2017-07-16] MEDS ORDERED: GLUCOSE 40% GEL 15 GM TUBE PO PRN (17:45)
[2017-07-16] MEDS ORDERED: PHARMACY GLYCEMIC MGMT CONSULT SCH (17:50)
[2017-07-16] MEDS ORDERED: LANTUS PER UNIT CHARGE SQ ONE (18:15)
[2017-07-16] MEDS: SODIUM CHLORIDE 0.45% 1000ML 1,000 ML IV SCH (18:20)
--- NOTE | 2017-07-16 18:23 | Pharmacy Progress Note ---
Glycemic Control Intl Consult Date of Service Jul 16, 2017. Scope Glycemic Pharmacist consulted by Dr Uriostegui on 07/16/17 for glycemic control and to write orders per [facility] inpatient glycemic control protocol Objective Weight (Kilograms): 75.000 Accuchecks BSG (last 24hrs): Test 07/16/17 06:39 07/16/17 12:04 07/16/17 16:37 Bedside Glucose 156 mg/dl (70-90) 194 mg/dl (70-90) 198 mg/dl (70-90) Laboratory Data (last 24hrs) Test 07/16/17 14:40 Creatinine 0.75 mg/dl Recent Pertinent Medications Outpatient Anti-diabetic Regimen: * None * A1c ordered with AM labs Risk Factors for Insulin Resistance: * Steroids: Dexamethasone 8mg IV x1 today in OR * IVF: D51/2 was running for about an hour, stopped now * Recent Surgery: s/p LLL lobectomy * Diet: Type 2 DM Assessment & Plan ASSESSMENT: * 72 year old female, unknown glycemic control as outpatient, no diagnosis or antidiabetic meds * s/p LLL Lobectomy for non-small cell lung cancer, active smoker * Will begin weight based with stress of 2 Novolog CF and CR and give supplemental dose of Lantus now for IV steroid coverage, and check BSGs overnight PLAN FOR INPATIENT GLYCEMIC CONTROL: * Basal insulin with LANTUS 10 units SQ x 1 now * Novolog 4 units SQ x 1 now to cover last BSG of 198mg/dl and some food eating from tray * Correctional Insulin with NOVOLOG per scale ACHS and overnight at 0000 and 0400 * Goal Range: Low 140 mg/dL - High 180 mg/dL * Correction Factor: 30 mg/dL/unit * Nutritional / Prandial insulin per carb ratio of 1 unit per 10 grams CHO consumed * Please note that the plan above was derived based on current level of insulin resistance and hospital stress. These recommendations are appropriate for inpatient admission only. Plan of care upon discharge will need to be reassessed to avoid potential outpatient hypo/hyperglycemia. Thank you.
[2017-07-16] MEDS ORDERED: INSULIN ASPART 100 UNITS/ML 3 ML PEN SC ONE (18:30)
[2017-07-16] MEDS: INSULIN ASPART 100 UNITS/ML 3 ML PEN SC SCH ×3 (18:42→23:42)
[2017-07-16] MEDS: DOCUSATE SODIUM 100 MG CAP PO SCH (20:07)
[2017-07-16] MEDS: ATORVASTATIN 10 MG TAB PO SCH (20:07)
[2017-07-17] VITALS (26 sets, daily range): BP systolic 106–149; BP diastolic 48–73; PULSE 67–85; TEMP 36.7–38.1; O2SAT 93–98; Ht 157.5 cm; Wt 74.9 kg
[2017-07-17] MEDS: INSULIN ASPART 100 UNITS/ML 3 ML PEN SC SCH ×5 (04:00→21:00)
[2017-07-17 05:41] LABS: BASO % 0.1 %; BASO ABS # 0.01 K/uL (0-0.2); HEMATOCRIT 40.3 % (37-47); HEMOGLOBIN 13.6 g/dL (12.0-16.0); IG# 0.04 K/uL (0.00-0.02); LYMPH % 8.6 %; MEAN CELL VOLUME 98.3 fL (80-100); MEAN CORPUSCULAR HEMOGLOBIN 33.2 pg (25-34); MEAN CORPUSCULAR HGB CONC 33.7 g/dl (32-36); MEAN PLATELET VOLUME 10.3 fL (7.4-10.4); MONO % 6.1 %; MONO ABS # 0.99 K/uL (0.11-0.59); NEUT ABS # 13.88 K/uL (1.4-6.5); PLATELET COUNT 209 K/uL (130-400); RED CELL DISTRIBUTION WIDTH CV 13.6 % (11.5-14.5); RED CELL DISTRIBUTION WIDTH SD 48.9 fL (36.4-46.3); WHITE BLOOD COUNT 16.32 K/uL (4.8-10.8)
[2017-07-17] MEDS: KETOROLAC TROMETHAMINE 15 MG/ML VIAL IV. SCH ×3 (05:57→23:00)
[2017-07-17] MEDS: METOCLOPRAMIDE HCL INJ 5 MG/ML 2 ML VIAL IV. SCH ×3 (05:57→21:38)
[2017-07-17] MEDS: SODIUM CHLORIDE 0.45% 1000ML 1,000 ML IV SCH ×2 (06:02→20:25)
[2017-07-17 06:16] LABS: CALCIUM 8.8 mg/dl (8.5-10.1); CREATININE 0.72 mg/dl (0.60-1.20); POTASSIUM 4.2 mmol/L (3.5-5.1)
[2017-07-17] MEDS: DOCUSATE SODIUM 100 MG CAP PO SCH ×2 (08:14→21:38)
[2017-07-17] MEDS: ESCITALOPRAM OXALATE 10 MG TAB PO SCH (08:14)
[2017-07-17] MEDS: ASPIRIN 81 MG ECTAB PO SCH (08:14)
[2017-07-17] MEDS: ENOXAPARIN 40 MG/0.4 ML SYR SQ SCH (08:15)
[2017-07-17] MEDS: NICOTINE 21 MG/24 HR TDSY TD SCH (08:15)
--- NOTE | 2017-07-17 08:36 | DIAGNOSTIC IMAGING REPORT ---
CHEST ONE VIEW PORTABLE CLINICAL HISTORY: lobectomy postoperative COMPARISON STUDY: 07/16/2017 FINDINGS: Progressive increase in density left hemithorax with mildly progressive cardiomediastinal silhouette shift to the left. Unchanged subcutaneous emphysematous change. Slight repositioning of a left-sided chest tube. No significant postprocedural pneumothorax currently. Lungs clear. Removal of the tube in the right basilar lung region. IMPRESSION: 1. Mild increase in density throughout the left hemithorax with mild increase in cardiomediastinal silhouette shift to the left. 2. Left-sided chest tube in position with no significant pneumothorax currently. The above report was generated using voice recognition software. It may contain grammatical, syntax or spelling errors. Electronically signed by: Andre Bhatti M.D. 07/17/2017 8:34 AM Dictated Date/Time: 07/17/2017 8:32 AM
[2017-07-17 08:54] LABS: HEMOGLOBIN A1C 5.8 % (4.5-5.6)
--- NOTE | 2017-07-17 13:16 | DIAGNOSTIC IMAGING REPORT ---
CHEST ONE VIEW PORTABLE CLINICAL HISTORY: Follow up left lung atelectasis. COMPARISON STUDY: Chest radiograph July 17, 2017 at 8:21 AM. FINDINGS: A left chest tube remains in place. There is no pneumothorax. Gas within left chest wall extensive gas within the left breast is noted as well as radiodense beads. Extensive left lung opacification is noted with evidence of volume loss, including leftward mediastinal shift. This has progressed since exam of November or 09/12/2017 at 8:21 AM. Right lung is clear. There is minimal left lung aeration. IMPRESSION: 1. Progression of extensive left lung opacification with volume loss suggestive of subtotal left lung atelectasis. 2. Left chest tube in place. No pneumothorax. Gas within the left chest wall and breast. Electronically signed by: Javier Najera M.D. 07/17/2017 1:15 PM Dictated Date/Time: 07/17/2017 1:12 PM
[2017-07-17] MEDS ORDERED: FENTANYL CITRATE INJ 50 MCG/1 ML 2 ML VIAL ONE (15:48)
[2017-07-17] MEDS ORDERED: MIDAZOLAM HCL 5 MG/ML 1 ML VIAL ONE (15:49)
--- NOTE | 2017-07-17 15:51 | Critical Care Progress Note ---
Critical Care Progress Note Date of Service Jul 17, 2017. Attending Dr. Uriostegui Subjective The patient is improving, however she does have poor cough reflex, she does not have any chest pain reported, her oxygenation has been maintained and she was ambulatory. Objective Chest x-ray was reviewed which revealed total atelectasis of the left lung mainly the left upper lobe. The patient did not have any hypoxia however she is having difficulty mobilizing her secretions due to splinting from pain. Assessment & Plan #1 non-small cell lung CA status post left lower lobe lobectomy. #2 atelectasis of the left upper lobe. #3 COPD. #4 history of thyroid nodule. #5 history of difficulty placing ET tube. Plan: #[address] the patient on incentive spirometry and a N valve. #[address] Haddad, I would perform bronchoscopy for pulmonary toilet. #3 continue with current treatments. #4 watch for WBC. #5 bronchodilators. #6 ambulate. #7 chest tube management per Dr. Haddad. Thank you, will follow. Data Medications: Current Inpatient Medications Medications (Trade) Dose Ordered Sig/Rodney Route Start Time Stop Time Status Last Admin Dose Admin Enoxaparin Sodium (Lovenox Inj) 40 mg DAILY SQ 07/17/17 10:00 08/16/17 09:59 07/17/17 08:15 40 MG Ondansetron HCl (Zofran Inj) 4 mg Q4H PRN IV 07/16/17 11:45 08/15/17 11:44 Docusate Sodium (coLACE CAP) 100 mg BID PO 07/16/17 21:00 08/15/17 20:59 07/17/17 08:14 100 MG Ketorolac Tromethamine (Toradol Inj) 15 mg Q8H IV. 07/16/17 15:00 07/18/17 07:01 07/17/17 05:57 15 MG Metoclopramide HCl (Reglan Inj) 10 mg Q8 IV. 07/16/17 15:00 08/15/17 14:59 07/17/17 13:45 10 MG Oxycodone/ Acetaminophen (Percocet 5-325mg Tab) Q3H PRN PO 07/16/17 11:45 07/30/17 11:44 Morphine Sulfate (MoRPHine SULFATE INJ) Q1H PRN IV 07/16/17 11:45 07/30/17 11:44 07/17/17 11:58 2 MG Aspirin (Ecotrin Tab) 81 mg QAM PO 07/17/17 09:00 08/16/17 08:59 07/17/17 08:14 81 MG Atorvastatin Calcium (Lipitor Tab) 10 mg HS PO 07/16/17 21:00 08/15/17 20:59 07/16/17 20:07 10 MG Escitalopram Oxalate (Lexapro Tab) 10 mg QAM PO 07/17/17 09:00 08/16/17 08:59 07/17/17 08:14 10 MG Nicotine (Nicoderm Cq 21MG Patch) 1 patch DAILY TD 07/17/17 09:00 08/16/17 08:59 07/17/17 08:15 1 PATCH Sodium Chloride 1,000 ml @ 75 mls/hr [id number] IV 07/16/17 17:45 08/15/17 17:44 07/17/17 06:02 75 MLS/HR Insulin Aspart (novoLOG ASPART) SLIDING SCALE If C... ACHS SC 07/16/17 18:00 08/15/17 17:59 07/17/17 08:21 1 UNITS Glucose (Glucose 40% Gel) 15-30 GRAMS 15 GRAMS... UD PRN PO 07/16/17 17:45 08/15/17 17:44 Glucose (Glucose Chew Tab) 4-8 Tablets 4 Tabl... UD PRN PO 07/16/17 17:45 08/15/17 17:44 Dextrose (Dextrose 50% 50ML Syringe) 25-50ML OF 50% DW IV FOR... UD PRN IV 07/16/17 17:45 08/15/17 17:44 Glucagon (Glucagon Inj) 1 mg UD PRN SQ 07/16/17 17:45 08/15/17 17:44 Miscellaneous Information (Consult Glycemic Management Pharmacy) 1 ea UD N/A 07/16/17 17:50 08/15/17 17:49 I & O: 24-Hour Column 07/18/17 07:59 Intake Total 736 ml Output Total 200 ml Balance 536 ml Vital Signs: Date Time Temp Pulse Resp B/P (MAP) Pulse Ox O2 Delivery O2 Flow Rate FiO2 07/17/17 12:00 36.7 78 21 149/64 (92) 95 3.0 07/17/17 12:00 95 Nasal Cannula 3.0 07/17/17 11:00 84 18 137/63 (87) 93 07/17/17 10:00 80 16 138/62 (87) 95 07/17/17 09:00 74 13 134/57 (82) 97 3.0 07/17/17 08:11 72 20 107/73 (84) 95 07/17/17 08:00 37.3 69 20 123/52 (75) 93 3.0 07/17/17 08:00 93 Nasal Cannula 3.0 07/17/17 07:00 71 13 106/49 (68) 95 07/17/17 06:00 72 18 132/53 (79) 95 Nasal Cannula 3.0 07/17/17 05:00 69 12 126/49 (74) 95 Nasal Cannula 3.0 07/17/17 04:00 36.8 70 12 129/53 (78) 95 Nasal Cannula 3.0 132/62 (85) 07/17/17 04:00 93 Nasal Cannula 3.0 07/17/17 02:00 70 17 115/49 (71) 96 Nasal Cannula 2.0 120/59 (79) 07/17/17 01:00 72 19 122/52 (75) 94 Nasal Cannula 126/60 (82) 07/17/17 00:01 36.8 67 19 111/56 (74) 94 Nasal Cannula 2.0 116/48 (70) 07/16/17 23:59 93 Nasal Cannula 2.0 07/16/17 23:00 69 12 120/50 (73) 94 Nasal Cannula 2.0 110/59 (76) 07/16/17 22:00 69 18 120/50 (73) 94 Nasal Cannula 2.0 07/16/17 21:00 68 16 127/61 (83) 94 Nasal Cannula 2.0 121/51 (74) 07/16/17 20:00 93 Nasal Cannula 2.0 Humidified Oxygen 07/16/17 20:00 36.7 74 16 125/57 (79) 93 Nasal Cannula 2.0 07/16/17 19:00 76 16 127/59 (81) 94 Nasal Cannula 2.0 07/16/17 18:00 74 20 122/57 (78) 94 Nasal Cannula 2.0 07/16/17 17:00 73 17 104/52 (69) 92 Nasal Cannula 2.0 07/16/17 16:00 36.6 69 16 118/56 (76) 96 Nasal Cannula 2.0 07/16/17 16:00 93 Oxymask 2.0 Laboratory Results: Last 24 Hours Test 07/16/17 16:37 07/16/17 20:27 07/16/17 23:33 07/17/17 04:03 Bedside Glucose 198 mg/dl 160 mg/dl 143 mg/dl 149 mg/dl Test 07/17/17 05:27 07/17/17 11:48 White Blood Count 16.32 K/uL Red Blood Count 4.10 M/uL Hemoglobin 13.6 g/dL Hematocrit 40.3 % Mean Corpuscular Volume 98.3 fL Mean Corpuscular Hemoglobin 33.2 pg Mean Corpuscular Hemoglobin Concent 33.7 g/dl Platelet Count 209 K/uL Mean Platelet Volume 10.3 fL Neutrophils (%) (Auto) 85.0 % Lymphocytes (%) (Auto) 8.6 % Monocytes (%) (Auto) 6.1 % Eosinophils (%) (Auto) 0.0 % Basophils (%) (Auto) 0.1 % Neutrophils # (Auto) 13.88 K/uL Lymphocytes # (Auto) 1.40 K/uL Monocytes # (Auto) 0.99 K/uL Eosinophils # (Auto) 0.00 K/uL Basophils # (Auto) 0.01 K/uL RDW Standard Deviation 48.9 fL RDW Coefficient of Variation 13.6 % Immature Granulocyte % (Auto) 0.2 % Immature Granulocyte # (Auto) 0.04 K/uL Arterial Blood pH 7.35 Arterial Blood Partial Pressure CO2 44 mmHg Arterial Blood Partial Pressure O2 72 mm/Hg Arterial Blood HCO3 24 mmol/L Arterial Blood Oxygen Saturation 93.3 % Arterial Blood Base Excess -1.6 mEq/L Arterial Blood Gas Delivery 3L Juan R Test TOÑITO Sodium Level 136 mmol/L Potassium Level 4.2 mmol/L Chloride Level 107 mmol/L Carbon Dioxide Level 24 mmol/L Anion Gap 5.0 mmol/L Blood Urea Nitrogen 12 mg/dl Creatinine 0.72 mg/dl Est Creatinine Clear Calc Drug Dose 68.9 ml/min Estimated GFR () 98.3 Estimated GFR (Non- 84.9 BUN/Creatinine Ratio 17.4 Random Glucose 161 mg/dl Estimated Average Glucose 120 mg/dl Hemoglobin A1c 5.8 % Calcium Level 8.8 mg/dl Bedside Glucose 140 mg/dl
[2017-07-17] MEDS ORDERED: FENTANYL CITRATE INJ 50 MCG/1 ML 2 ML VIAL IV SCH (16:00)
[2017-07-17] MEDS ORDERED: LIDOCAINE HCL 2% 2 ML VIAL (20MG/ML) INFIL SCH (16:00)
[2017-07-17] MEDS ORDERED: LIDOCAINE HCL 2% VISC SOLN 20 ML UDC MT ONE (16:00)
[2017-07-17] MEDS ORDERED: MIDAZOLAM HCL 1 MG/ML 2ML VIAL IV SCH (16:00)
--- NOTE | 2017-07-17 16:23 | Procedure Note ---
Procedure Note Procedure Date Jul 17, 2017. Procedure Description Procedure Name: Bronchoscopy Procedure time out: side/site verified, patient ID confirmed, correct procedure Consent obtained: verbal Performed by: attending Indications: diagnostic, therapeutic Contraindications: none Description: The patient was monitored in the ICU, the patient underwent the procedure monitor with ICU style, consent obtained verbally from the patient agreed to the procedure, family were at the bedside, the patient was localized with 10 mL of 2% lidocaine nebulized in addition to viscous lidocaine, total of 20 mL of 1 % lidocaine was injected throughout the entire procedure, the patient received total of 50 mics of fentanyl and 2 mg of Versed throughout the entire procedure. The bronchoscope passed through the bite block, the findings as follows: #1 large amount of lymphoid tissue at the base of her tongue likely hypertroph I 'd lymphoid tissue, cannot rule out low-grade lymphoma. #21 cord are mobile. #3 tracheal bronchial tree examined from RB1 to RB10 and LB 1 to LB 10, and noted the absence of LB 7-10, status post left lower lobe lobectomy. #4 large amount of bloody secretions noted occluding the takeoff of the LB1-LB6 suctioned to clear, specimen was sent for Gram stain and culture. #5 thick secretions was removed entirely. No saline was injected. #6 tolerated the procedure very well. No immediate competition. #7 repeat chest x-ray.
--- NOTE | 2017-07-17 17:10 | DIAGNOSTIC IMAGING REPORT ---
CHEST ONE VIEW PORTABLE HISTORY: 72 years-old Female post bronch status post bronchoscopy. Follow-up study in a patient with a left-sided chest tube. COMPARISON: Chest radiograph of same day at 12:55 PM TECHNIQUE: Portable AP view of the chest FINDINGS: Cardiac silhouette again appears enlarged. Atherosclerosis of the aorta. Left-sided chest tube is again seen with distal tip projecting over the left lung apex. Unchanged subcutaneous emphysema of the left chest wall. Radiodense beads are also seen within the left chest wall breast region. Left hemithorax is again nearly completely opacified with volume loss and mild leftward mediastinal shift. Only minimal aeration is noted within the left lung, notably within the left lung apex. Right lung is generally clear with mild pulmonary vascular congestion. No definite pneumothorax. Bones appear grossly intact. Degenerative changes are seen within the shoulders and spine. IMPRESSION: 1. Persistent near complete opacification of the left hemithorax with volume loss suggesting atelectasis. 2. Unchanged position of left-sided chest tube with extensive subcutaneous emphysema of the left chest wall. 3. No pneumothorax identified. The above report was generated using voice recognition software. It may contain grammatical, syntax or spelling errors. Electronically signed by: Fran Abbott M.D. 07/17/2017 5:09 PM Dictated Date/Time: 07/17/2017 5:06 PM
[2017-07-17] MEDS: AMPICILLIN/SULBACTAM SOD INJ 1,500 MG in SODIUM CHLORIDE 0.9% 100ML 100 ML IV SCH (18:36)
--- NOTE | 2017-07-17 19:20 | SURGERY PROGRESS NOTE ---
DATE: 07/17/2017 Ms. Elam was seen today on 07/17/2017, 1 day status post a thoracoscopic left lower lobectomy with mediastinal lymph node dissection. The patient has been ambulating in the hallway. She is on supplemental oxygen. She is tolerating house diet. She has no air leak. Her drainage has decreased and serous in nature. I am a bit concerned, however. She has decreased breath sounds on the left and upon reviewing her chest x-ray, it could be seen that she has volume loss with some collapse. I suspect we have some mucous plugging or some old blood from the time of surgery. Dr. Uriostegui has kindly agreed to perform a bronchoscopy; however, she has already eaten breakfast so it has to be later on in the day. She has good cough, but I do not believe she is bringing up enough of sputum. We will check a chest x-ray later on and probably proceed with a therapeutic bronchoscopy later today. I had a long talk with the patient and her family. I have to say I am pretty happy with her progress. The ability of her to get up out of bed and ambulate is excellent.
[2017-07-17] MEDS: ATORVASTATIN 10 MG TAB PO SCH (21:38)
[2017-07-18] VITALS (42 sets, daily range): BP systolic 92–167; BP diastolic 41–93; PULSE 70–91; TEMP 36.5–37.9; O2SAT 91–97
[2017-07-18] MEDS: AMPICILLIN/SULBACTAM SOD INJ 1,500 MG in SODIUM CHLORIDE 0.9% 100ML 100 ML IV SCH ×4 (00:02→17:58)
[2017-07-18] MEDS: METOCLOPRAMIDE HCL INJ 5 MG/ML 2 ML VIAL IV. SCH (06:19)
--- NOTE | 2017-07-18 07:42 | DIAGNOSTIC IMAGING REPORT ---
CHEST ONE VIEW PORTABLE CLINICAL HISTORY: f/u THERESA collapse COMPARISON STUDY: Chest radiograph July 17, 2017 4:43 PM. FINDINGS: A left sided chest tube is in place. Gas within the left chest wall/left breast is noted with radiodense beads. Left lung atelectasis has progressed. There is suspected left lung collapse. Left apical lucency favors a pneumothorax. Left hemithorax following loss is noted. Right lung is clear. IMPRESSION: Progression of left lung collapse with relative left apical lucency which raises the possibility of an apical pneumothorax with left chest tube in place. Electronically signed by: Javier Najera M.D. 07/18/2017 7:41 AM Dictated Date/Time: 07/18/2017 7:38 AM
[2017-07-18] MEDS: INSULIN ASPART 100 UNITS/ML 3 ML PEN SC SCH ×4 (07:55→20:50)
[2017-07-18 07:59] LABS: BASO % 0.1 %; BASO ABS # 0.02 K/uL (0-0.2); EOS % 0.2 %; EOS ABS # 0.03 K/uL (0-0.5); HEMATOCRIT 39.4 % (37-47); HEMOGLOBIN 13.1 g/dL (12.0-16.0); IG# 0.03 K/uL (0.00-0.02); LYMPH % 11.1 %; LYMPH ABS # 1.52 K/uL (1.2-3.4); MEAN CELL VOLUME 98.7 fL (80-100); MEAN CORPUSCULAR HEMOGLOBIN 32.8 pg (25-34); MEAN CORPUSCULAR HGB CONC 33.2 g/dl (32-36); MEAN PLATELET VOLUME 10.2 fL (7.4-10.4); MONO % 9.6 %; MONO ABS # 1.32 K/uL (0.11-0.59); NEUT % 78.8 %; NEUT ABS # 10.83 K/uL (1.4-6.5); PLATELET COUNT 197 K/uL (130-400); RED CELL DISTRIBUTION WIDTH CV 13.8 % (11.5-14.5); RED CELL DISTRIBUTION WIDTH SD 49.8 fL (36.4-46.3); WHITE BLOOD COUNT 13.75 K/uL (4.8-10.8)
--- NOTE | 2017-07-18 08:24 | SURGERY PROGRESS NOTE ---
DATE: 07/18/2017 Kim Elam was seen this morning on 07/18/2017. She is sitting up in the chair. She has not eating yet. Her oxygen requirements went up. She is on 4 liters of O2 now. She has no air leak and her drainage has decreased. She has some serous drainage. The patient does have pain when she coughs but otherwise her pain control has been fairly good. Her vital signs have been stable. Upon physical exam, she has markedly decreased breath sounds on the left. Her incisions all looked very good. She has a regular rate and rhythm of her heart in the 80s. Her abdomen is nice and soft. She has been eating well. Her sequential compression devices are in place. She is voiding without a Chang catheter. Neurologically she is completely intact. On reviewing her labs, her white count has come down to 13,750 with a hemoglobin of 13.1. Her blood sugars have been very well controlled. She is on ampicillin sulbactam, but the Gram stain is not back from the bronchoscopy results yesterday. Her x-ray shows complete opacification of the left side. I was involved with the bronchoscopy with Dr. Uriostegui yesterday and she just has swelling. He did suction out some bloody mucus. ASSESSMENT AND PLAN: Postoperative day #2, status post thoracoscopic left lower lobectomy and mediastinal lymph node dissection. The patient looks great and she is walking around the hallways; however, I am quite concerned about this atelectasis. She does not have an anatomical problem. She simply has edema. I discussed this with Dr. Uriostegui today. He is going to start steroids on her. Removing the chest tube has helped. She coughed much better after I removed it and she actually has better breath sounds on the left. Dr. Uriostegui will perform a bronchoscopy on her later today. We are going to keep her in the ICU overnight.
[2017-07-18 08:31] LABS: CALCIUM 9.2 mg/dl (8.5-10.1); CREATININE 0.61 mg/dl (0.60-1.20); POTASSIUM 3.8 mmol/L (3.5-5.1)
[2017-07-18] MEDS ORDERED: LANTUS PER UNIT CHARGE SQ SCH (09:00)
[2017-07-18] MEDS: DOCUSATE SODIUM 100 MG CAP PO SCH ×2 (09:00→20:50)
[2017-07-18] MEDS: ESCITALOPRAM OXALATE 10 MG TAB PO SCH (09:00)
[2017-07-18] MEDS: ASPIRIN 81 MG ECTAB PO SCH (09:00)
[2017-07-18] MEDS: ENOXAPARIN 40 MG/0.4 ML SYR SQ SCH (09:22)
[2017-07-18] MEDS: NICOTINE 21 MG/24 HR TDSY TD SCH (09:23)
[2017-07-18] MEDS: KETOROLAC TROMETHAMINE 15 MG/ML VIAL IV. SCH (09:35)
[2017-07-18] MEDS: SODIUM CHLORIDE 0.45% 1000ML 1,000 ML IV SCH (09:36)
[2017-07-18] MEDS ORDERED: MIDAZOLAM HCL 5 MG/ML 1 ML VIAL ONE (10:33)
[2017-07-18] MEDS ORDERED: FENTANYL CITRATE INJ 50 MCG/1 ML 2 ML VIAL ONE (10:34)
--- NOTE | 2017-07-18 11:27 | Critical Care Progress Note ---
Critical Care Progress Note Date of Service Jul 18, 2017. Attending Dr. Uriostegui Subjective The patient remained stable overnight, she was still having difficulty coughing up her secretions. She denies any chest pain, no shortness of breath, she remains weak to ambulate. Objective Chest x-ray was reviewed which revealed total atelectasis of the left lung mainly the left upper lobe. The patient did not have any hypoxia however she is having difficulty mobilizing her secretions due to splinting from pain. 07/18/2017, the patient continues to cough but unable to raise her sputum. Her chest tube has been removed. Chest x-ray revealed partial inflation of the left upper lobe. The patient was planned to have bronchoscopy again for pulmonary toilet. Her physical exam revealed vital signs are stable except for blood pressure in the range of 160 systolic, O2 saturation 97% on nasal cannula, oral thrush, no stridor, heart examination S1-S2 regular rate and rhythm, lungs with evidence breath sounds on the left, subcutaneous emphysema but minimal, abdomen is benign no edema. Neurologically she is intact. Assessment & Plan #1 non-small cell lung CA status post left lower lobe lobectomy. #2 atelectasis of the left upper lobe. #3 COPD. #4 history of thyroid nodule. #5 history of difficulty placing ET tube. #6 recurrent atelectasis of the left upper lobe. Status post bronchoscopy with secretion removal. Repeat chest x-ray revealed partial information and remains with atelectasis and mediastinal shift. Plan: #[address] the patient on incentive spirometry and acapella valve. #[address] Haddad, I would perform bronchoscopy for pulmonary toilet. We'll repeat a bronchoscopy today per Dr Haddad. #3 continue with current treatments. #4 watch for WBC. Although WBC are going down. #5 bronchodilators. #6 ambulate. #7 chest tube removed by Dr. Haddad. #8 I will start the patient on a short course of Solu-Medrol 40 mg IV every 12 hours. #9 continue with pulmonary toilet aggressively. #10 Unasyn 1.5 g IV every 6 hours prophylactically for treatment of colored sputum from yesterday that was suctioned. This is to avoid developing pneumonia and only lobe and the left. Thank you, will follow. Data Medications: Current Inpatient Medications Medications (Trade) Dose Ordered Sig/Rodney Route Start Time Stop Time Status Last Admin Dose Admin Enoxaparin Sodium (Lovenox Inj) 40 mg DAILY SQ 07/17/17 10:00 08/16/17 09:59 07/18/17 09:22 40 MG Ondansetron HCl (Zofran Inj) 4 mg Q4H PRN IV 07/16/17 11:45 08/15/17 11:44 Docusate Sodium (coLACE CAP) 100 mg BID PO 07/16/17 21:00 08/15/17 20:59 07/17/17 21:38 100 MG Metoclopramide HCl (Reglan Inj) 10 mg Q8 IV. 07/16/17 15:00 08/15/17 14:59 07/18/17 06:19 10 MG Oxycodone/ Acetaminophen (Percocet 5-325mg Tab) Q3H PRN PO 07/16/17 11:45 07/30/17 11:44 Morphine Sulfate (MoRPHine SULFATE INJ) Q1H PRN IV 07/16/17 11:45 07/30/17 11:44 07/17/17 11:58 2 MG Aspirin (Ecotrin Tab) 81 mg QAM PO 07/17/17 09:00 08/16/17 08:59 07/17/17 08:14 81 MG Atorvastatin Calcium (Lipitor Tab) 10 mg HS PO 07/16/17 21:00 08/15/17 20:59 07/17/17 21:38 10 MG Escitalopram Oxalate (Lexapro Tab) 10 mg QAM PO 07/17/17 09:00 08/16/17 08:59 07/17/17 08:14 10 MG Nicotine (Nicoderm Cq 21MG Patch) 1 patch DAILY TD 07/17/17 09:00 08/16/17 08:59 07/18/17 09:23 1 PATCH Sodium Chloride 1,000 ml @ 75 mls/hr [id number] IV 07/16/17 17:45 08/15/17 17:44 07/18/17 09:36 75 MLS/HR Insulin Aspart (novoLOG ASPART) SLIDING SCALE If C... ACHS SC 07/16/17 18:00 08/15/17 17:59 07/17/17 08:21 1 UNITS Glucose (Glucose 40% Gel) 15-30 GRAMS 15 GRAMS... UD PRN PO 07/16/17 17:45 08/15/17 17:44 Glucose (Glucose Chew Tab) 4-8 Tablets 4 Tabl... UD PRN PO 07/16/17 17:45 08/15/17 17:44 Dextrose (Dextrose 50% 50ML Syringe) 25-50ML OF 50% DW IV FOR... UD PRN IV 07/16/17 17:45 08/15/17 17:44 Glucagon (Glucagon Inj) 1 mg UD PRN SQ 07/16/17 17:45 08/15/17 17:44 Miscellaneous Information (Consult Glycemic Management Pharmacy) 1 ea UD N/A 07/16/17 17:50 08/15/17 17:49 Ampicillin Sodium/ Sulbactam Sodium 1500 mg/Sodium Chloride 104 ml @ 200 mls/hr Q6H IV 07/17/17 18:00 07/24/17 17:59 07/18/17 06:19 200 MLS/HR Methylprednisolone Sodium Succinate 40 mg/Syringe 0.64 ml @ 1.5 mls/min Q12H IV 07/18/17 11:30 08/17/17 11:29 UNV Nystatin (Mycostatin Susp) 10 ml QID PO 07/18/17 13:00 07/25/17 12:59 UNV Vital Signs: Date Time Temp Pulse Resp B/P (MAP) Pulse Ox O2 Delivery O2 Flow Rate FiO2 07/18/17 11:13 Nasal Cannula 07/18/17 11:10 74 11 102/59 (73) 95 Nasal Cannula 5.0 07/18/17 11:05 76 14 105/59 (74) 92 Nasal Cannula 5.0 07/18/17 11:01 80 17 103/47 (65) 91 07/18/17 11:00 37.9 78 14 123/70 (87) 91 Nasal Cannula 5.0 07/18/17 10:59 78 12 92/41 (58) 91 07/18/17 10:59 37.9 78 12 136/62 (86) 91 Oxymask 07/18/17 10:50 90 14 149/85 97 Oxymask 8.0 148/56 07/18/17 10:45 80 13 147/75 97 Oxymask 8.0 140/57 07/18/17 10:41 82 18 146/58 97 Oxymask 07/18/17 08:00 Nasal Cannula 3.0 07/18/17 08:00 37.0 77 24 133/56 (81) 95 Nasal Cannula 3.0 07/18/17 06:00 78 15 145/68 (93) 95 Nasal Cannula 4.0 07/18/17 05:00 75 15 138/69 (92) 96 Nasal Cannula 4.0 07/18/17 04:35 93 Nasal Cannula 2.0 07/18/17 04:00 37.5 78 14 130/66 (87) 95 Nasal Cannula 3.0 07/18/17 03:00 75 13 121/62 (81) 96 Nasal Cannula 3.0 07/18/17 02:00 37.5 77 12 121/61 (81) 96 Nasal Cannula 3.0 07/18/17 01:00 78 12 125/61 (82) 96 Nasal Cannula 3.0 07/18/17 00:40 93 Nasal Cannula 2.0 07/18/17 00:00 84 13 131/65 (87) 95 Nasal Cannula 3.0 07/17/17 23:00 85 14 136/70 (92) 96 Nasal Cannula 3.0 07/17/17 22:25 84 13 131/69 (89) 96 Nasal Cannula 3.0 07/17/17 22:00 84 12 133/66 (88) 96 Nasal Cannula 3.0 07/17/17 21:00 84 16 138/67 (90) 96 Nasal Cannula 3.0 07/17/17 20:06 93 Nasal Cannula 2.0 07/17/17 20:00 76 15 118/62 (80) 96 Nasal Cannula 3.0 07/17/17 19:12 38.1 80 20 122/62 (82) 97 Nasal Cannula 3.0 07/17/17 19:00 77 14 121/53 (75) 96 Nasal Cannula 3.0 07/17/17 16:54 Oxymask 07/17/17 16:00 37.7 76 19 146/61 (89) 98 Nasal Cannula 3.0 07/17/17 15:45 96 Nasal Cannula 3.0 07/17/17 15:00 72 21 129/54 (79) 95 07/17/17 14:00 73 12 134/56 (82) 95 07/17/17 13:00 78 16 145/66 (92) 93 07/17/17 12:00 36.7 78 21 149/64 (92) 95 3.0 07/17/17 12:00 95 Nasal Cannula 3.0 Laboratory Results: Last 24 Hours Test 07/17/17 11:48 07/17/17 15:56 07/17/17 21:31 07/18/17 07:08 Bedside Glucose 140 mg/dl 125 mg/dl 158 mg/dl 138 mg/dl Test 07/18/17 07:49 White Blood Count 13.75 K/uL Red Blood Count 3.99 M/uL Hemoglobin 13.1 g/dL Hematocrit 39.4 % Mean Corpuscular Volume 98.7 fL Mean Corpuscular Hemoglobin 32.8 pg Mean Corpuscular Hemoglobin Concent 33.2 g/dl Platelet Count 197 K/uL Mean Platelet Volume 10.2 fL Neutrophils (%) (Auto) 78.8 % Lymphocytes (%) (Auto) 11.1 % Monocytes (%) (Auto) 9.6 % Eosinophils (%) (Auto) 0.2 % Basophils (%) (Auto) 0.1 % Neutrophils # (Auto) 10.83 K/uL Lymphocytes # (Auto) 1.52 K/uL Monocytes # (Auto) 1.32 K/uL Eosinophils # (Auto) 0.03 K/uL Basophils # (Auto) 0.02 K/uL RDW Standard Deviation 49.8 fL RDW Coefficient of Variation 13.8 % Immature Granulocyte % (Auto) 0.2 % Immature Granulocyte # (Auto) 0.03 K/uL Sodium Level 136 mmol/L Potassium Level 3.8 mmol/L Chloride Level 108 mmol/L Carbon Dioxide Level 22 mmol/L Anion Gap 7.0 mmol/L Blood Urea Nitrogen 14 mg/dl Creatinine 0.61 mg/dl Est Creatinine Clear Calc Drug Dose 82.1 ml/min Estimated GFR () 106.5 Estimated GFR (Non- 91.9 BUN/Creatinine Ratio 23.1 Random Glucose 145 mg/dl Calcium Level 9.2 mg/dl
--- NOTE | 2017-07-18 11:34 | Procedure Note ---
Procedure Note Procedure Date Jul 18, 2017. Procedure Description Procedure Name: Bronchoscopy . Procedure time out: side/site verified, patient ID confirmed, correct procedure Consent obtained: written Performed by: attending Description: Bronchoscopy was done due to atelectasis of the left upper lobe likely due to mucoid impaction. Consent obtained from the patient, risk and benefit explained details. The patient was monitored in the ICU with ICU style of monitoring. She was stable for the procedure. Risk and benefit explained details of the patient and agreed to the procedure. The procedure was done through the oral cavity using a bite block. The bronchoscope passed through the oral cavity and the findings as follows: #1 again noted lymphoid tissue with hypertrophy at the base of her genioglossus muscle. #2 vocal cords are moving appropriately. #3 petechial changes in the proximal trachea likely from cough. #4 absence of the left lower lobe and postop changes noted. #5 minimal amount of thick secretions suctioned from the takeoff of the left upper lobe. #6 lidocaine neb 10 mL 1% was used and 10 mL throughout the entire procedure of 1% lidocaine was used as well. #7 bronchial wash up to 10 mL of normal saline used to irrigate the rhonchus of the left upper lobe. #8 chest x-ray reviewed after the procedure with inflammation of left upper lobe still with haziness, and the mediastinum shifted back again to a natural position. #9 the patient received total of 50 mics of fentanyl and 2 mg of Versed throughout the entire procedure. Patient tolerated the procedure very well. No immediate complication. Family notified.
--- NOTE | 2017-07-18 11:38 | DIAGNOSTIC IMAGING REPORT ---
CHEST ONE VIEW PORTABLE CLINICAL HISTORY: Post bronchoscopy. COMPARISON STUDY: Chest radiograph July 18, 2017 at 7:02 AM. FINDINGS: The left chest tube has been removed. There is a possible small left apical pneumothorax. Extensive left lung opacification is noted with volume loss. There is minimal left lung aeration. This has slightly improved since exam performed earlier today. Left chest wall/breast soft tissue gas with radiodense beads is noted. IMPRESSION: 1. Interval removal of the left-sided chest tube. Suspected small left apical pneumothorax. 2. Extensive left hemithorax opacification with volume loss with minimal left lung aeration, slightly improved since prior exam. Electronically signed by: Javier Najera M.D. 07/18/2017 11:37 AM Dictated Date/Time: 07/18/2017 11:35 AM
[2017-07-18] MEDS: METHYLPREDNISOLONE IV 40 MG in SYRINGE 0 ML IV SCH (12:10)
[2017-07-18] MEDS ORDERED: NURSING VERBAL MED ORDER ONE (12:15)
[2017-07-18] MEDS: NYSTATIN SUSP 500,000 U/5 ML UDC PO SCH ×3 (13:00→20:51)
--- NOTE | 2017-07-18 13:50 | Pharmacy Progress Note ---
Pharmacy Glycemic Short Note 2 Date of Service Jul 18, 2017. OUTPATIENT ANTIDIABETIC REGIMEN: * None * A1c ordered with AM labs ASSESSMENT: * 72 year old female, unknown glycemic control as outpatient, no diagnosis or antidiabetic meds * s/p LLL Lobectomy for non-small cell lung cancer, active smoker * Adequate BSG control over the past 24 hours: 161, 140, 125, 158 * IV steroids starting this afternoon - will add basal insulin (weight based, per scale) and tighten bolus insulin parameters to combat steroid induced hyperglycemia PLAN FOR INPATIENT GLYCEMIC CONTROL: * Basal insulin * Lantus 7 units this am * Lantus 0-13 units SQ BID (0 for BSG < 110, 7 for BSG 110-180, 13 for BSG > 180) * Bolus insulin * NovoLog per scale ACHS or Q6hrs while NPO * Goal Range: Low 140 mg/dL - High 180 mg/dL * Correction Factor: 25 mg/dL/unit * Nutritional / Prandial insulin per carb ratio of 1 unit per 8 grams CHO consumed * Add overnight check with coverage at 0200 Thank you.
[2017-07-18] MEDS: ATORVASTATIN 10 MG TAB PO SCH (20:50)
[2017-07-18] MEDS: INSULIN GLARGINE SOLOSTAR 100 UNITS/ML 3 ML PEN SC SCH (20:52)
[2017-07-19] VITALS (26 sets, daily range): BP systolic 120–175; BP diastolic 57–90; PULSE 69–91; TEMP 36.5–36.7; O2SAT 89–97
[2017-07-19] MEDS: METHYLPREDNISOLONE IV 40 MG in SYRINGE 0 ML IV SCH ×2 (00:05→12:28)
[2017-07-19] MEDS: AMPICILLIN/SULBACTAM SOD INJ 1,500 MG in SODIUM CHLORIDE 0.9% 100ML 100 ML IV SCH ×4 (00:05→17:00)
[2017-07-19] MEDS: SODIUM CHLORIDE 0.45% 1000ML 1,000 ML IV SCH ×2 (00:06→12:29)
[2017-07-19] MEDS ORDERED: INSULIN ASPART 100 UNITS/ML 3 ML PEN SC SCH (02:00)
--- NOTE | 2017-07-19 07:44 | DIAGNOSTIC IMAGING REPORT ---
CHEST ONE VIEW PORTABLE CLINICAL HISTORY: follow up THERESA atelectasis COMPARISON STUDY: Chest radiograph July 18, 2017 11:23 AM. FINDINGS: Extensive left hemithorax opacification is noted with left hemithorax volume loss. There is near complete opacification of the left lung. Soft tissue gas within left chest wall and left breast is noted with radiodense beads. No definite left pneumothorax is identified. Right lung is clear. IMPRESSION: No significant change in extensive left hemithorax opacification and volume loss with minimal aeration of the left lung. Electronically signed by: Javier Najera M.D. 07/19/2017 7:43 AM Dictated Date/Time: 07/19/2017 7:41 AM
[2017-07-19 08:30] LABS: HEMATOCRIT 42.5 % (37-47); HEMOGLOBIN 14.6 g/dL (12.0-16.0); IG# 0.03 K/uL (0.00-0.02); LYMPH % 8.4 %; LYMPH ABS # 1.04 K/uL (1.2-3.4); MEAN CELL VOLUME 97.3 fL (80-100); MEAN CORPUSCULAR HEMOGLOBIN 33.4 pg (25-34); MEAN CORPUSCULAR HGB CONC 34.4 g/dl (32-36); MEAN PLATELET VOLUME 10.4 fL (7.4-10.4); MONO ABS # 0.74 K/uL (0.11-0.59); NEUT % 85.4 %; NEUT ABS # 10.58 K/uL (1.4-6.5); PLATELET COUNT 215 K/uL (130-400); RED CELL DISTRIBUTION WIDTH CV 13.3 % (11.5-14.5); RED CELL DISTRIBUTION WIDTH SD 47.1 fL (36.4-46.3); WHITE BLOOD COUNT 12.39 K/uL (4.8-10.8)
--- NOTE | 2017-07-19 08:34 | SURGERY PROGRESS NOTE ---
DATE: 07/19/2017 SUBJECTIVE: Mrs. Elam looks great today. She is sitting up in a chair. She is on a BiPAP to help increase the aeration of her left upper lobe. She feels better and looks better. Her A-a gradient has improved as she was up to 5 liters and now down to 3 with good saturations. She still has some rhonchi on the left, but it is better than she was yesterday, is moving more air. Her x-ray also looks better. She denies pain. She ambulated 20 times around the nurses' station yesterday. I discussed this case with Dr. Uriostegui. She is on antibiotics and steroids. We are going to continue with the BiPAP overnight and check an x-ray in the morning. I think she looks better to me and hopefully, she will continue to improve. I am still quite concerned about her x-ray, however. Her lung is still not fully expanded. The bronchoscopy showed very little except for some sputum, which was thick. She is on antibiotics now, really has not grown anything from her sputum cultures. JONO
[2017-07-19 09:03] LABS: CALCIUM 9.9 mg/dl (8.5-10.1); CREATININE 0.68 mg/dl (0.60-1.20); POTASSIUM 4.4 mmol/L (3.5-5.1)
[2017-07-19] MEDS: DOCUSATE SODIUM 100 MG CAP PO SCH ×2 (09:12→21:17)
[2017-07-19] MEDS: ASPIRIN 81 MG ECTAB PO SCH (09:12)
[2017-07-19] MEDS: NYSTATIN SUSP 500,000 U/5 ML UDC PO SCH ×4 (09:12→21:17)
[2017-07-19] MEDS: ESCITALOPRAM OXALATE 10 MG TAB PO SCH (09:12)
[2017-07-19] MEDS: NICOTINE 21 MG/24 HR TDSY TD SCH (09:13)
[2017-07-19] MEDS: ENOXAPARIN 40 MG/0.4 ML SYR SQ SCH (09:13)
[2017-07-19] MEDS: INSULIN ASPART 100 UNITS/ML 3 ML PEN SC SCH ×4 (09:18→21:00)
[2017-07-19] MEDS: INSULIN GLARGINE SOLOSTAR 100 UNITS/ML 3 ML PEN SC SCH ×2 (09:18→21:19)
--- NOTE | 2017-07-19 16:12 | Pulmonology Progress Note ---
Pulmonary Progress Note Date of Service Jul 19, 2017. Attending Dr. Uriostegui Subjective No events overnight, the patient was taken off the BiPAP and her O2 saturation remains in the range of 90s on nasal cannula. The patient was ambulatory. Able to cough up her secretions. Appear to be overall weak. Objective On 07/19/2017, her physical exam revealed stable vital signs, no fever, blood pressure remains elevated, no JVP, heart examination S1-S2 regular rate and rhythm, lungs with distant breath sounds bilaterally, abdomen is benign, no edema. Assessment & Plan #1 postop day 4 left lower lobe lobectomy. #2 atelectasis of the left upper lobe, improving but slowly. Remains with significant atelectasis. Likely due to lack of surfactant. #3 cannot rule out superimposed infectious process. #4 COPD. Plan: #1 continue Solu-Medrol 40 mg IV every 12. #2 continue with Unasyn. #3 pulmonary toilet. #4 bronchodilators. #5 ambulation. #6 DVT and GI prophylaxis. #7 no need for further bronchoscopy at this point. The patient is very sensitive to sedation even with minimal amount she was somnolent for 12 hours at least. #[address] Haddad. Thank you Data Medications: Current Inpatient Medications Medications (Trade) Dose Ordered Sig/Rodney Route Start Time Stop Time Status Last Admin Dose Admin Enoxaparin Sodium (Lovenox Inj) 40 mg DAILY SQ 07/17/17 10:00 08/16/17 09:59 07/19/17 09:13 40 MG Ondansetron HCl (Zofran Inj) 4 mg Q4H PRN IV 07/16/17 11:45 08/15/17 11:44 Docusate Sodium (coLACE CAP) 100 mg BID PO 07/16/17 21:00 08/15/17 20:59 07/19/17 09:12 100 MG Oxycodone/ Acetaminophen (Percocet 5-325mg Tab) Q3H PRN PO 07/16/17 11:45 07/30/17 11:44 Morphine Sulfate (MoRPHine SULFATE INJ) Q1H PRN IV 07/16/17 11:45 07/30/17 11:44 07/17/17 11:58 2 MG Aspirin (Ecotrin Tab) 81 mg QAM PO 1/26/18 09:00 08/16/17 08:59 07/19/17 09:12 81 MG Atorvastatin Calcium (Lipitor Tab) 10 mg HS PO 07/16/17 21:00 08/15/17 20:59 07/18/17 20:50 10 MG Escitalopram Oxalate (Lexapro Tab) 10 mg QAM PO 07/17/17 09:00 08/16/17 08:59 07/19/17 09:12 10 MG Nicotine (Nicoderm Cq 21MG Patch) 1 patch DAILY TD 07/17/17 09:00 08/16/17 08:59 07/19/17 09:13 1 PATCH Sodium Chloride 1,000 ml @ 75 mls/hr [id number] IV 07/16/17 17:45 08/15/17 17:44 07/19/17 12:29 75 MLS/HR Insulin Aspart (novoLOG ASPART) SLIDING SCALE If C... ACHS SC 07/16/17 18:00 08/15/17 17:59 07/19/17 12:30 4 UNITS Glucose (Glucose 40% Gel) 15-30 GRAMS 15 GRAMS... UD PRN PO 07/16/17 17:45 08/15/17 17:44 Glucose (Glucose Chew Tab) 4-8 Tablets 4 Tabl... UD PRN PO 07/16/17 17:45 08/15/17 17:44 Dextrose (Dextrose 50% 50ML Syringe) 25-50ML OF 50% DW IV FOR... UD PRN IV 07/16/17 17:45 08/15/17 17:44 Glucagon (Glucagon Inj) 1 mg UD PRN SQ 07/16/17 17:45 08/15/17 17:44 Miscellaneous Information (Consult Glycemic Management Pharmacy) 1 ea UD N/A 07/16/17 17:50 08/15/17 17:49 Ampicillin Sodium/ Sulbactam Sodium 1500 mg/Sodium Chloride 104 ml @ 200 mls/hr Q6H IV 07/17/17 18:00 07/24/17 17:59 07/19/17 12:28 200 MLS/HR Methylprednisolone Sodium Succinate 40 mg/Syringe 0.64 ml @ 1.5 mls/min Q12H IV 07/18/17 12:00 08/17/17 11:59 07/19/17 12:28 1.5 MLS/MIN Nystatin (Mycostatin Susp) 10 ml QID PO 07/18/17 13:00 07/25/17 12:59 07/19/17 12:29 10 ML Insulin Glargine (Lantus Solostar Pen) SEE PROTOCOL BID SC 07/18/17 21:00 08/17/17 20:59 07/19/17 09:18 7 UNITS I & O: 24-Hour Column 07/20/17 08:00 Intake Total 1266 ml Output Total 400 ml Balance 866 ml Vital Signs: Date Time Temp Pulse Resp B/P (MAP) Pulse Ox O2 Delivery O2 Flow Rate FiO2 07/19/17 13:00 88 18 127/64 (85) 96 Nasal Cannula 2.0 07/19/17 12:01 36.7 88 19 120/57 (78) 94 Nasal Cannula 3.0 07/19/17 12:00 Nasal Cannula 3.0 07/19/17 11:00 84 19 140/67 (91) 96 Nasal Cannula 3.0 07/19/17 10:00 86 18 120/59 (79) 96 Nasal Cannula 3.0 07/19/17 09:02 86 24 149/85 (106) 96 Nasal Cannula 3.0 07/19/17 08:00 36.6 70 18 155/82 (106) 96 Nasal Cannula 3.0 07/19/17 08:00 Nasal Cannula 3.0 07/19/17 07:16 69 94 30 07/19/17 07:00 79 21 143/86 (105) 94 Nasal Cannula 3.0 07/19/17 06:00 36.5 71 17 139/76 (97) 93 Nasal Cannula 3.0 07/19/17 05:00 72 17 156/78 (104) 92 Nasal Cannula 3.0 07/19/17 04:55 97 BiPAP 35 07/19/17 04:00 69 15 153/78 (103) 91 Nasal Cannula 3.0 07/19/17 03:01 79 17 143/70 (94) 93 Nasal Cannula 3.0 07/19/17 02:00 74 16 131/74 (93) 95 Nasal Cannula 3.0 07/19/17 01:13 76 17 175/76 (109) 96 Nasal Cannula 3.0 07/19/17 00:15 97 BiPAP 35 07/19/17 00:00 36.7 77 14 154/90 (111) 96 Nasal Cannula 3.0 07/18/17 23:00 76 19 149/77 (101) 96 Nasal Cannula 3.0 07/18/17 22:18 80 94 30 07/18/17 22:00 73 16 141/77 (98) 95 Nasal Cannula 3.0 07/18/17 21:00 81 21 154/74 (100) 94 Nasal Cannula 3.0 07/18/17 20:01 96 Nasal Cannula 3.0 07/18/17 20:00 36.5 79 17 145/77 (99) 96 Nasal Cannula 3.0 07/18/17 19:05 90 167/93 (117) 93 Nasal Cannula 3.0 07/18/17 18:13 88 16 165/81 (109) 96 Nasal Cannula 3.0 07/18/17 16:11 36.8 91 18 142/70 (94) 93 Nasal Cannula 3.0 Laboratory Results: Last 24 Hours Test 07/18/17 16:38 07/18/17 20:48 07/19/17 03:42 07/19/17 07:03 Bedside Glucose 145 mg/dl 142 mg/dl 147 mg/dl 146 mg/dl Test 07/19/17 07:55 07/19/17 11:25 White Blood Count 12.39 K/uL Red Blood Count 4.37 M/uL Hemoglobin 14.6 g/dL Hematocrit 42.5 % Mean Corpuscular Volume 97.3 fL Mean Corpuscular Hemoglobin 33.4 pg Mean Corpuscular Hemoglobin Concent 34.4 g/dl Platelet Count 215 K/uL Mean Platelet Volume 10.4 fL Neutrophils (%) (Auto) 85.4 % Lymphocytes (%) (Auto) 8.4 % Monocytes (%) (Auto) 6.0 % Eosinophils (%) (Auto) 0.0 % Basophils (%) (Auto) 0.0 % Neutrophils # (Auto) 10.58 K/uL Lymphocytes # (Auto) 1.04 K/uL Monocytes # (Auto) 0.74 K/uL Eosinophils # (Auto) 0.00 K/uL Basophils # (Auto) 0.00 K/uL RDW Standard Deviation 47.1 fL RDW Coefficient of Variation 13.3 % Immature Granulocyte % (Auto) 0.2 % Immature Granulocyte # (Auto) 0.03 K/uL Sodium Level 137 mmol/L Potassium Level 4.4 mmol/L Chloride Level 106 mmol/L Carbon Dioxide Level 27 mmol/L Anion Gap 4.0 mmol/L Blood Urea Nitrogen 12 mg/dl Creatinine 0.68 mg/dl Est Creatinine Clear Calc Drug Dose 72.9 ml/min Estimated GFR () 102.7 Estimated GFR (Non- 88.6 BUN/Creatinine Ratio 17.9 Random Glucose 153 mg/dl Calcium Level 9.9 mg/dl Bedside Glucose 148 mg/dl
[2017-07-19] MEDS ORDERED: NURSING VERBAL MED ORDER ONE (18:15)
[2017-07-19] MEDS: ATORVASTATIN 10 MG TAB PO SCH (21:18)
[2017-07-20] VITALS (13 sets, daily range): BP systolic 147–189; BP diastolic 76–93; PULSE 59–81; TEMP 36.4–36.8; O2SAT 89–97
[2017-07-20] MEDS: AMPICILLIN/SULBACTAM SOD INJ 1,500 MG in SODIUM CHLORIDE 0.9% 100ML 100 ML IV SCH ×5 (00:01→23:40)
[2017-07-20] MEDS: METHYLPREDNISOLONE IV 40 MG in SYRINGE 0 ML IV SCH ×3 (00:01→23:41)
[2017-07-20] MEDS: INSULIN ASPART 100 UNITS/ML 3 ML PEN SC SCH ×4 (06:45→21:17)
--- NOTE | 2017-07-20 07:34 | DIAGNOSTIC IMAGING REPORT ---
CHEST ONE VIEW PORTABLE CLINICAL HISTORY: 72 years-old Female presenting with s/p lobectomy. TECHNIQUE: Portable upright AP view of the chest was obtained. COMPARISON: 07/19/2017. FINDINGS: Atherosclerosis of the aortic arch. Left heart border obscured. New complete opacification of the left hemithorax as on prior exam. Subcutaneous emphysema along the inferior left lateral chest wall. Radiodense implants beats also project over the lateral left breast as on prior exam. The right lung and pleural space are clear. Mild right hyperinflation. Minimal aeration of the left apex, unchanged. Osseous structures normal. Upper abdomen normal. IMPRESSION: 1. No significant change in near complete opacification of the left hemithorax status post reported lobectomy. Minimal aeration of the left apex unchanged. Electronically signed by: Enoch Valera M.D. 07/20/2017 7:32 AM Dictated Date/Time: 07/20/2017 7:30 AM
[2017-07-20] MEDS: ASPIRIN 81 MG ECTAB PO SCH (08:08)
[2017-07-20] MEDS: ESCITALOPRAM OXALATE 10 MG TAB PO SCH (08:08)
[2017-07-20] MEDS: DOCUSATE SODIUM 100 MG CAP PO SCH ×2 (08:08→21:02)
[2017-07-20] MEDS: ENOXAPARIN 40 MG/0.4 ML SYR SQ SCH (08:09)
[2017-07-20] MEDS: NYSTATIN SUSP 500,000 U/5 ML UDC PO SCH ×4 (08:09→21:02)
[2017-07-20] MEDS: NICOTINE 21 MG/24 HR TDSY TD SCH (08:10)
[2017-07-20] MEDS: INSULIN GLARGINE SOLOSTAR 100 UNITS/ML 3 ML PEN SC SCH ×2 (08:13→21:19)
--- NOTE | 2017-07-20 09:19 | SURGERY PROGRESS NOTE ---
DATE: 07/20/2017 Ms. Elam looks much improved today. She is on room air. She has been ambulating quite a bit in the hallway. Removal of chest tube has been helpful. She really is not producing any sputum. Upon evaluation, she looks quite good. She is tolerating a house diet. She has been voiding well. Her vital signs have been quite stable, in fact her heart rate has dropped even further down into the 60s. She was able to sleep last night. On auscultation, she sounds better to me but she still has decreased breath sounds relative to the right but is moving air well. Her rhonchi have decreased. Her incisions are all quite clean with no evidence of erythema or fluctuance. I reviewed her lab work from yesterday and it looks quite good. Her hemoglobin is 14.6, her white count is down to 12,390. Her sodium has come up to 137, her BUN and creatinine are 12 and 0.68. Her blood sugars have been well controlled. X-ray still shows some volume loss. I think her x-ray looks better. I disagree with the x-ray report of "near complete opacification." She does have markings and really no evidence of a pneumothorax or pleural effusion. ASSESSMENT AND PLAN: Postoperative day #4 status post thoracoscopic left lower lobectomy with mediastinal lymph node dissection. We are going to move her to the floor and continue to work on her from a pulmonary toilet standpoint. I believe she should be able to go home in the next day or two depending on how her x-ray improves.
--- NOTE | 2017-07-20 13:48 | Pharmacy Progress Note ---
Glycemic: Assessment & Plan Date of Service Jul 20, 2017. Assessment & Plan The patient is currently receiving 23 units of insulin per day. BSGs ranging 133 - 157 mg/dl over the past 24hrs. * Basal insulin: Lantus 7 units every 12 hours (unless < 110) * Correctional Insulin: Novolog Correction per scale ACHS Goal Range: Low 140 mg/dL - High 18 mg/dL Correction Factor: 25 mg/dL/unit * Prandial insulin: Per carb ratio of 1 unit per 8 grams CHO consumed BSGs continue to improve, no changes needed to inpatient regimen at this time. Pharmacy will continue to monitor patient daily and write orders per [facility] inpatient glycemic control protocol. Thanks. * Please note that the plan above was derived based on current level of insulin resistance and hospital stress. These recommendations are appropriate for inpatient admission only. Plan of care upon discharge will need to be reassessed to avoid potential outpatient hypo/hyperglycemia.
[2017-07-20] MEDS: ATORVASTATIN 10 MG TAB PO SCH (21:02)
[2017-07-21 04:32] VITALS: BP 170/90
[2017-07-21] MEDS: AMPICILLIN/SULBACTAM SOD INJ 1,500 MG in SODIUM CHLORIDE 0.9% 100ML 100 ML IV SCH ×4 (05:40→23:43)
--- NOTE | 2017-07-21 07:12 | DIAGNOSTIC IMAGING REPORT ---
CHEST ONE VIEW PORTABLE CLINICAL HISTORY: Lung resection. COMPARISON STUDY: Chest radiograph November or 11/03/2018. FINDINGS: Gas within left breast/chest wall is noted with radiodense beads. Right lung is clear. Left lung aeration has significantly improved. There is persistent asymmetric opacity and interstitial thickening within the left lung with a left pleural effusion. The effusion may be moderate in size. There is no pneumothorax. IMPRESSION: 1. Significant interval improvement in left lung aeration. Persistent left lung airspace opacity with volume loss which has improved. 2. Left pleural effusion, possibly moderate in size. No pneumothorax. Electronically signed by: Javier Najera M.D. 07/21/2017 7:11 AM Dictated Date/Time: 07/21/2017 7:09 AM
[2017-07-21 07:31] VITALS: BP 128/85; PULSE 61; TEMP 36.6; O2SAT 94
--- NOTE | 2017-07-21 07:41 | SURGERY PROGRESS NOTE ---
DATE: 07/21/2017 Ms. Elam looks great today. She is ambulating in the hallway. She is on room air. She is tolerating a diet. I removed all of her dressings, her chest tube site and all of her sites look quite good. Her pain is extremely well controlled. The patient is extremely anxious to get home. She still has rhonchi with decreased breath sounds on the left; however her x-ray is greatly improved with good aeration of the remaining left upper lobe. She may have a small left pleural effusion. I am going to keep her in the hospital on parenteral antibiotics 1 more day. In addition, her blood pressure has been poorly controlled at 170/90 this morning. Blood sugars have also been a bit higher than I would like in the 133-186. Her pathology is not back yet. ASSESSMENT AND PLAN: Postoperative day #5. She looks much improved. She may go home in the next day or two if she remains stable.
[2017-07-21] MEDS: NYSTATIN SUSP 500,000 U/5 ML UDC PO SCH ×4 (09:14→20:40)
[2017-07-21] MEDS: ESCITALOPRAM OXALATE 10 MG TAB PO SCH (09:14)
[2017-07-21] MEDS: ASPIRIN 81 MG ECTAB PO SCH (09:15)
[2017-07-21] MEDS: DOCUSATE SODIUM 100 MG CAP PO SCH ×2 (09:15→20:40)
[2017-07-21] MEDS: NICOTINE 21 MG/24 HR TDSY TD SCH (09:15)
[2017-07-21] MEDS: ENOXAPARIN 40 MG/0.4 ML SYR SQ SCH (09:15)
[2017-07-21] MEDS: INSULIN ASPART 100 UNITS/ML 3 ML PEN SC SCH ×4 (09:22→20:47)
[2017-07-21] MEDS: INSULIN GLARGINE SOLOSTAR 100 UNITS/ML 3 ML PEN SC SCH ×2 (09:24→20:47)
[2017-07-21 09:39] LABS: HEMATOCRIT 42.6 % (37-47); MEAN CELL VOLUME 95.9 fL (80-100); MEAN CORPUSCULAR HEMOGLOBIN 31.5 pg (25-34); MEAN CORPUSCULAR HGB CONC 32.9 g/dl (32-36); MEAN PLATELET VOLUME 10.6 fL (7.4-10.4); PLATELET COUNT 322 K/uL (130-400); RED CELL DISTRIBUTION WIDTH CV 13.3 % (11.5-14.5); RED CELL DISTRIBUTION WIDTH SD 47.2 fL (36.4-46.3); WHITE BLOOD COUNT 12.06 K/uL (4.8-10.8)
[2017-07-21 10:13] LABS: CALCIUM 9.6 mg/dl (8.5-10.1); CREATININE 0.88 mg/dl (0.60-1.20); POTASSIUM 3.6 mmol/L (3.5-5.1)
[2017-07-21] MEDS: METHYLPREDNISOLONE IV 40 MG in SYRINGE 0 ML IV SCH ×2 (12:33→23:43)
--- NOTE | 2017-07-21 13:08 | Pharmacy Progress Note ---
Pharmacy Glycemic Short Note 2 Date of Service Jul 21, 2017. OUTPATIENT ANTIDIABETIC REGIMEN: * None * 5.8% on 07/17/17 (indicative of pre-diabetes) ASSESSMENT: * 72 year old female with pre-diabetes and steroid induced hyperglycemia * Pt initiated on weight based SQ basal bolus insulin regimen for steroids * Pt has been receiving ~25 units of insulin per day with adequate control. * BSGs trending down today - suspect level of insulin resistance is improving with improvement in patient status. * Will empirically loosen regimen to prevent hypoglycemia. PLAN FOR INPATIENT GLYCEMIC CONTROL: * Basal insulin: loosen basal insulin * Lantus BID dose based on BSG scale * Lantus 0-7units SQ BID * BSG below 140 mg/dl --> 0 units * BSG 140 mg/dl or above --> 7 units * Bolus insulin: loosen parameters * NovoLog per scale ACHS or Q6hrs while NPO * Goal Range: Low 110 mg/dL - High 140 mg/dL * Correction Factor: 30 mg/dL/unit * Nutritional / Prandial insulin per carb ratio of 1 unit per 10 grams CHO consumed Thank you.
[2017-07-21 16:00] VITALS: O2SAT 94
[2017-07-21] MEDS ORDERED: TRAZODONE HCL 50 MG TAB PO PRN (16:00)
[2017-07-21] MEDS ORDERED: HydrALAZINE HCL 20 MG/ML VIAL IV. PRN (16:00)
--- NOTE | 2017-07-21 16:24 | Medical Consult ---
Consultation Date of Consultation: Jul 21, 2017. Attending Physician: Scott Haddad MD Reason for Consultation: Blood pressure, blood sugar management History of Present Illness This is a 72 y/o female with a history of vulvar cancer, squamous cell lung cancer, CVA, HLD, anxiety, and psoriasis who presents s/p left video assisted thoracoscopy w/lower lobectomy and mediastinal lymphadenectomy with Dr. Haddad on 07/16 for blood pressure and blood sugar management. The patient reports feeling well and is resting on room air. She denies any shortness of breath at rest and has been walking in the hallway without MURILLO. She does have a productive cough with clear sputum. Her chief complaint today is difficulty sleeping/restlessness at night. She states she didn't get any rest last night. Earlier this morning she had also had flushing of her face without fever. The patient denies fevers, chills, sweats, chest pain, palpitations, claudication, wheezing, shortness of breath, nausea, vomiting, abdominal pain, dysuria, hematuria, urinary retention, paralysis, weakness, numbness and tingling. 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 Squamous cell carcinoma of lung (left lower lobe), new primary H/o CVA 2016 HLD Anxiety Psoriasis Family History Chronic obstructive pulmonary disease Diabetes mellitus Esophageal cancer Lung cancer Social History Smoking Status: Current Every Day Smoker (1 ppd x 55 years) Smokeless Tobacco Use: No Alcohol Use: none Drug Use: none Housing Status: lives with family (with daughter) Occupation Status: retired Allergies Coded Allergies: Latex1 -Allergic Contact Dermititis (Verified Allergy, Unknown, REDNESS, ) NO KNOWN DRUG ALLERGIES (Verified Allergy, Unknown, NONE, 07/14/17) Current Inpatient Medications Current Inpatient Medications Medications (Trade) Dose Ordered Sig/Rodney Route Start Time Stop Time Status Last Admin Dose Admin Enoxaparin Sodium (Lovenox Inj) 40 mg DAILY SQ 07/17/17 10:00 08/16/17 09:59 07/21/17 09:15 40 MG Ondansetron HCl (Zofran Inj) 4 mg Q4H PRN IV 07/16/17 11:45 08/15/17 11:44 Docusate Sodium (coLACE CAP) 100 mg BID PO 07/16/17 21:00 08/15/17 20:59 07/21/17 09:15 100 MG Oxycodone/ Acetaminophen (Percocet 5-325mg Tab) Q3H PRN PO 07/16/17 11:45 07/30/17 11:44 Morphine Sulfate (MoRPHine SULFATE INJ) Q1H PRN IV 07/16/17 11:45 07/30/17 11:44 07/17/17 11:58 2 MG Aspirin (Ecotrin Tab) 81 mg QAM PO 07/17/17 09:00 08/16/17 08:59 07/21/17 09:15 81 MG Atorvastatin Calcium (Lipitor Tab) 10 mg HS PO 07/16/17 21:00 08/15/17 20:59 07/20/17 21:02 10 MG Escitalopram Oxalate (Lexapro Tab) 10 mg QAM PO 07/17/17 09:00 08/16/17 08:59 07/21/17 09:14 10 MG Nicotine (Nicoderm Cq 21MG Patch) 1 patch DAILY TD 07/17/17 09:00 08/16/17 08:59 07/21/17 09:15 1 PATCH Insulin Aspart (novoLOG ASPART) SLIDING SCALE If C... ACHS SC 07/16/17 18:00 08/15/17 17:59 07/21/17 09:22 6 UNITS Glucose (Glucose 40% Gel) 15-30 GRAMS 15 GRAMS... UD PRN PO 07/16/17 17:45 08/15/17 17:44 Glucose (Glucose Chew Tab) 4-8 Tablets 4 Tabl... UD PRN PO 07/16/17 17:45 08/15/17 17:44 Dextrose (Dextrose 50% 50ML Syringe) 25-50ML OF 50% DW IV FOR... UD PRN IV 07/16/17 17:45 08/15/17 17:44 Glucagon (Glucagon Inj) 1 mg UD PRN SQ 07/16/17 17:45 08/15/17 17:44 Miscellaneous Information (Consult Glycemic Management Pharmacy) 1 ea UD N/A 07/16/17 17:50 08/15/17 17:49 Ampicillin Sodium/ Sulbactam Sodium 1500 mg/Sodium Chloride 104 ml @ 200 mls/hr Q6H IV 07/17/17 18:00 07/24/17 17:59 07/21/17 11:23 200 MLS/HR Methylprednisolone Sodium Succinate 40 mg/Syringe 0.64 ml @ 1.5 mls/min Q12H IV 07/18/17 12:00 08/17/17 11:59 07/21/17 12:33 1.5 MLS/MIN Nystatin (Mycostatin Susp) 10 ml QID PO 07/18/17 13:00 07/25/17 12:59 07/21/17 12:35 10 ML Insulin Glargine (Lantus Solostar Pen) SEE PROTOCOL BID SC 07/20/17 21:00 08/19/17 20:59 07/21/17 09:24 7 UNITS Review of Systems See HPI for pertinent positives and negatives. All other systems reviewed and negative. Physical Exam Date Time Temp Pulse Resp B/P (MAP) Pulse Ox O2 Delivery O2 Flow Rate FiO2 07/21/17 07:31 36.6 61 18 128/85 (99) 94 Room Air 07/21/17 07:30 Room Air 07/21/17 04:32 170/90 (116) 07/20/17 23:40 81 184/93 (123) 63 173/81 (111) 07/20/17 23:40 Room Air 07/20/17 23:15 36.4 71 16 189/92 (124) 92 Room Air General appearance: +Obese. Well-developed, well-nourished, no apparent distress Head: Normocephalic, atraumatic Eyes: Normal inspection, PERRL, EOMI ENT: Normal ENT inspection, hearing grossly normal, pharynx normal Neck: Supple, no JVD, trachea midline Respiratory/Chest: +Decreased breath sounds, L>R with diffuse rhonchi. No respiratory distress Cardiovascular: Regular rate & rhythm, no gallop, no murmur Abdomen/GI: Normal bowel sounds, non-tender, soft Extremities/Musculoskeletal: Normal inspection, no calf tenderness, no pedal edema Neurological/Psych: Alert, normal mood/affect, oriented x 3 Skin: +Psoriasis elbows, knees, lower legsNormal color, warm/dry Laboratory Results Last 24 Hours Test 07/20/17 17:22 07/20/17 20:59 07/21/17 08:11 07/21/17 09:13 Bedside Glucose 172 mg/dl 186 mg/dl 146 mg/dl White Blood Count 12.06 K/uL Red Blood Count 4.44 M/uL Hemoglobin 14.0 g/dL Hematocrit 42.6 % Mean Corpuscular Volume 95.9 fL Mean Corpuscular Hemoglobin 31.5 pg Mean Corpuscular Hemoglobin Concent 32.9 g/dl RDW Standard Deviation 47.2 fL RDW Coefficient of Variation 13.3 % Platelet Count 322 K/uL Mean Platelet Volume 10.6 fL Sodium Level 139 mmol/L Potassium Level 3.6 mmol/L Chloride Level 106 mmol/L Carbon Dioxide Level 26 mmol/L Anion Gap 7.0 mmol/L Blood Urea Nitrogen 24 mg/dl Creatinine 0.88 mg/dl Est Creatinine Clear Calc Drug Dose 56.4 ml/min Estimated GFR () 77.2 Estimated GFR (Non- 66.6 BUN/Creatinine Ratio 27.2 Random Glucose 202 mg/dl Calcium Level 9.6 mg/dl Assessment & Plan 72 y/o female with a history of vulvar cancer, squamous cell lung cancer, CVA, HLD, anxiety, and psoriasis who presents s/p left video assisted thoracoscopy w/ lower lobectomy and mediastinal lymphadenectomy with Dr. Haddad on 07/16 for blood pressure and blood sugar management. S/p thoracoscopy and lobectomy, new primary SCC of lung--POD #5, improving per Dr. Haddad -S/p multiple bronchoscopies -CXR with significantly improved aeration of left lung compared to 07/20. Volume loss improved. -Pulmonology following -IV steroids, IV Unasyn, pulmonary toilet per pulmonology and primary team HTN--BP labile, swinging higher at nighttime. Last BP 128/85 -IV steroids, recent surgeries/procedures could all be contributing -Cover with hydralazine 10 mg IV q6h prn SBP >160 Prediabetes--HgbA1c 5.8 on 07/17 -Taken off metformin several months ago by PCP per pt -Lantus 0-7 units per protocol -Insulin sliding scale -Check BSGs q ac and qhs -Elevated BSGs likely secondary to Solu-Medrol, A1c demonstrates good overall control SCC of vulva--chemo and radiation [facility] H/o CVA, HLD -Continue ASA, Lipitor 10 mg PO hs Anxiety -Continue Lexapro 10 mg PO qd Insomnia--likely also secondary steroids -Try trazodone 50 mg PO hs prn Psoriasis--stable, at baseline per pt Thank you for this consultation. We will continue to follow. Supervising Note Dr. Barragan I performed a history and physical examination on the patient. I reviewed above note and agree with it. I discussed plan with APC and patient. During my face to face encounter with the patient, I answered all of the patient's questions.
[2017-07-21 16:53] VITALS: BP 168/96; PULSE 66; TEMP 36.6; O2SAT 93
[2017-07-21 17:39] VITALS: BP 182/111; PULSE 64
[2017-07-21] MEDS ORDERED: NURSING VERBAL MED ORDER ONE (18:45)
[2017-07-21] MEDS ORDERED: ZOLPIDEM TARTRATE 10 MG TAB PO PRN (20:00)
[2017-07-21] MEDS: ATORVASTATIN 10 MG TAB PO SCH (20:40)
[2017-07-21 23:19] VITALS: BP 156/74; PULSE 76; TEMP 36.5; O2SAT 93
[2017-07-22] MEDS: AMPICILLIN/SULBACTAM SOD INJ 1,500 MG in SODIUM CHLORIDE 0.9% 100ML 100 ML IV SCH (05:39)
--- NOTE | 2017-07-22 07:32 | DIAGNOSTIC IMAGING REPORT ---
CHEST ONE VIEW PORTABLE CLINICAL HISTORY: lobectomy COMPARISON STUDY: 07/21/2017 FINDINGS: The cardiac and mediastinal contours remain stable. There is persistent left-sided volume loss. There is a left pleural effusion. There are improving left lung airspace opacities. There is gas present within the left chest wall and breast. Multiple tiny calcifications project over the left infra axillary region. These remain unchanged.[ IMPRESSION: Postsurgical change. Persistent left pleural effusion. Improving aeration of the left lung. Electronically signed by: Shawn Reich M.D. 07/22/2017 7:31 AM Dictated Date/Time: 07/22/2017 7:30 AM
[2017-07-22 07:51] VITALS: BP 158/82; TEMP 36.4; O2SAT 96
[2017-07-22] MEDS ORDERED: PRED10TA PO (07:55)
[2017-07-22] MEDS ORDERED: AMOX875T PO (07:55)
--- NOTE | 2017-07-22 07:56 | Discharge Instructions ---
Discharge Instructions Date of Service Jul 22, 2017. Admission Reason for Admission: Left Lung Cancer Discharge Discharge Diagnosis / Problem: Left Lung Cancer Discharge Goals Goal(s): Learn about illness Activity Recommendations Activity Limitations: as noted below Lifting Limitations: none 1. [place] may shower upon return home. No tub baths. 2. Do not drive until cleared to do so by Dr. Haddad. . Instructions / Follow-Up Instructions / Follow-Up 1. Office appointment with Dr. Haddad in 1 week. Office will call with date and time of appointment. Go to hospital 1 hour before appointment to have a chest x-ray taken. Current Hospital Diet Patient's current hospital diet: Diabetes Type 2 Diet Discharge Diet Recommended Diet: Regular Diet Procedures Procedures Performed: Left Video Assisted Thoracoscopy with Lower Lobectomy and Mediastinal Lymphadenectomy with Application of Stimulan Beads Pending Studies Studies pending at discharge: no Laboratory Results Hemoglobin A1c Test 07/17/17 05:27 Range/Units Estimated Average Glucose 120 mg/dl Hemoglobin A1c 5.8 H 4.5-5.6 % Medical Emergencies . Who to Call and When: Medical Emergencies: If at any time you feel your situation is an emergency, please call 911 immediately. . Non-Emergent Contact Non-Emergency issues call your: Surgeon Call Non-Emergent contact if: you have a fever, your pain is not controlled, wound has increased drainage . "Provider Documentation" section prepared by Delon Santos. . VTE Core Measure Inpt VTE Proph given/why not?: Enoxaparin (Lovenox)SQ
[2017-07-22 08:02] VITALS: O2SAT 96
[2017-07-22] MEDS: DOCUSATE SODIUM 100 MG CAP PO SCH (09:01)
[2017-07-22] MEDS: ESCITALOPRAM OXALATE 10 MG TAB PO SCH (09:01)
[2017-07-22] MEDS: ASPIRIN 81 MG ECTAB PO SCH (09:01)
[2017-07-22] MEDS: NYSTATIN SUSP 500,000 U/5 ML UDC PO SCH (09:02)
[2017-07-22] MEDS: ENOXAPARIN 40 MG/0.4 ML SYR SQ SCH (09:02)
[2017-07-22] MEDS: NICOTINE 21 MG/24 HR TDSY TD SCH (09:03)
[2017-07-22] MEDS: INSULIN ASPART 100 UNITS/ML 3 ML PEN SC SCH (09:08)
[2017-07-22] MEDS: INSULIN GLARGINE SOLOSTAR 100 UNITS/ML 3 ML PEN SC SCH (09:09)
[2017-07-22 09:52] VITALS: BP 158/82; PULSE 76; TEMP 36.4; O2SAT 96
--- NOTE | 2017-07-22 10:45 | Hospitalist Progress Note ---
Hospitalist Progress Note Date of Service Jul 22, 2017. (Glenny Hannah ., LASTC) Subjective Pt evaluation today including: conversation w/ patient, physical exam, chart review, lab review, review of studies, review of inpatient medication list Pain: None PO Intake: Tolerating PO diet Patient reports feeling well and is looking forward to discharge. She denies any shortness of breath at rest or with exertion and is comfortable on room air. She denies any complaints. The patient denies fevers, chills, sweats, chest pain, palpitations, claudication, cough, wheezing, shortness of breath, nausea, vomiting, abdominal pain, dysuria, hematuria, urinary retention, paralysis, weakness, numbness and tingling. Additional Comments: See HPI for pertinent positives and negatives. All other systems reviewed and negative. (Glenny Hannah ., MOHSEN-C) Objective Vital Signs Date Time Temp Pulse Resp B/P (MAP) Pulse Ox O2 Delivery O2 Flow Rate FiO2 07/22/17 09:52 36.4 76 18 96 Room Air 07/22/17 08:02 96 Room Air 07/22/17 07:51 36.4 18 158/82 (107) 96 Room Air 07/22/17 07:25 Room Air 07/21/17 23:40 Room Air 07/21/17 23:19 36.5 76 17 156/74 (101) 93 Room Air 07/21/17 17:39 64 182/111 (134) 07/21/17 16:53 36.6 66 18 168/96 (120) 93 Room Air 07/21/17 16:00 94 Room Air (Glenny Hannah, MOHSEN-C) Physical Exam Notes: General appearance: +Obese. Well-developed, well-nourished, no apparent distress Head: Normocephalic, atraumatic Eyes: Normal inspection, PERRL, EOMI ENT: Normal ENT inspection, hearing grossly normal, pharynx normal Neck: Supple, no JVD, trachea midline Respiratory/Chest: +Decreased breath sounds, L>R. Lungs clear to auscultation , no respiratory distress Cardiovascular: Regular rate & rhythm, no gallop, no murmur Abdomen/GI: Normal bowel sounds, non-tender, soft Extremities/Musculoskeletal: Normal inspection, no calf tenderness, no pedal edema Neurological/Psych: Alert, normal mood/affect, oriented x 3 Skin: +Psoriasis elbows, knees, lower legs. Normal color, warm/dry (Glenny Hannah PA-C) Laboratory Results Last 24 Hours Test 07/21/17 12:12 07/21/17 17:10 07/21/17 20:31 07/22/17 08:22 Bedside Glucose 75 mg/dl 151 mg/dl 271 mg/dl 144 mg/dl (Glenny Hannah PA-C) Diagnostic Results Reviewed the following studies and agree with interpretation as follows: CHEST ONE VIEW PORTABLE CLINICAL HISTORY: lobectomy COMPARISON STUDY: 07/21/2017 FINDINGS: The cardiac and mediastinal contours remain stable. There is persistent left-sided volume loss. There is a left pleural effusion. There are improving left lung airspace opacities. There is gas present within the left chest wall and breast. Multiple tiny calcifications project over the left infra axillary region. These remain unchanged.[ IMPRESSION: Postsurgical change. Persistent left pleural effusion. Improving aeration of the left lung. (Glenny Hannah PA-C) Assessment and Plan 72 y/o female with a history of vulvar cancer, squamous cell lung cancer, CVA, HLD, anxiety, and psoriasis who presents s/p left video assisted thoracoscopy w/ lower lobectomy and mediastinal lymphadenectomy with Dr. Haddad on 07/16 for blood pressure and blood sugar management. S/p thoracoscopy and lobectomy, new primary SCC of lung--POD #6, continues to improve -S/p multiple bronchoscopies -CXR 07/22 continues to show improvement in aeration of left lung. Persistent left pleural effusion. -Pulmonology following -IV steroids, IV Unasyn, pulmonary toilet per pulmonology and primary team HTN--BP labile, swinging higher at nighttime. Last BP 158/82 -IV steroids, recent surgeries/procedures could all be contributing -Cover with hydralazine 10 mg IV q6h prn SBP >160. Received 1 dose last night Prediabetes--HgbA1c 5.8 on 07/17 -Taken off metformin several months ago by PCP per pt -Lantus 0-7 units per protocol -Insulin sliding scale -Check BSGs q ac and qhs -Elevated BSGs likely secondary to Solu-Medrol, A1c demonstrates good overall control SCC of vulva--chemo and radiation [facility] H/o CVA, HLD -Continue ASA, Lipitor 10 mg PO hs Anxiety -Continue Lexapro 10 mg PO qd Insomnia--likely also secondary steroids -Try trazodone 50 mg PO hs prn Psoriasis--stable, at baseline per pt Pt. is stable from a medical standpoint, we will sign off. Clear for discharge as per primary team. (Glenny Hannah ., PA-C) Patient left before I was able to see her. (Cleveland Barragan M.D.)
--- NOTE | 2017-07-22 22:14 | DISCHARGE SUMMARY ---
DISCHARGE DIAGNOSES: 1. Squamous cell carcinoma of the left lower lobe. 2. Vulvar carcinoma status post resection. 3. Cigarette smoking. 4. Chronic obstructive pulmonary disease. 5. Atelectasis of left upper lobe following surgery. HOSPITAL COURSE: Kim Elam is a very nice 72-year-old who is active cigarette smoker, although she cut back significantly before this last surgery. I took her to the operating room and did a wedge resection of a cystic small mass in her left lower lobe and this turned out to be a squamous cell carcinoma, we felt it was metastatic; however, after doing multiple stains comparing it to her prior slides it was felt we were dealing with a primary. The resection line was positive and we had only done a wedge resection. After much discussion at our multidisciplinary clinic, we elected to proceed with a left lower lobectomy and mediastinal lymphadenectomy. On 07/16/2017, the patient had an uncomplicated left lower lobectomy. She did very well with very little in the way of blood loss, was extubated in the room; however, the following day she had collapsed her left upper lobe. She underwent a bronchoscopy 2 days in a row to clear out secretions. She had edema in not only her airways, but also in her laryngeal area. It did not appear to be severe; however. We started her on steroids and antibiotics and she slowly improved. We got her chest tube removed and she was ambulating in the hallway and she improved and finally on postop day #5, her x-ray had finally gotten to the point where she felt better, but her x-ray today on postop day #6 looked very good, although she probably has a small pleural effusion. She is on room air and incisions looked great. She has no pain. She was discharged home on no narcotics. As stated, she was ambulating in the hallway and eating a house diet. She was on room air. She was discharged home today and I will see her back in next week with an x-ray. I have explained to her it is possible we may do a thoracentesis depending on how this fluid looks. It is not affecting her clinically. I was quite happy with her upon discharge. Pathology showed a larger lesion, although I do not believe it is 2.5 cm. By x-ray, it only measured 1 cm. We stapled across it with our staple line at the time of her biopsy. All of her lymph nodes were negative. I believe that we will treat this as a stage I, although it was initially a stage IC, I believe it is probably smaller than earlier stage from that. At any rate, she should not require therapy for this, but she is going to require chemotherapy and radiation for her vulvar carcinoma as one of her groin nodes was positive for metastatic disease.
== END 2017-07-22 10:59 | disposition home or self-care (01) | DRG 164 ==
LOC: C.ACU 05:30 → C.MSICU 12:05 → ENRESERV 12:11 → C.MSW 07-20 10:40
PROVIDERS: ADMIT Surgery; ATTEND Surgery
PROC: 03HC33Z Insertion of Infusion Device into Left Radial Artery, Percutaneous Approach (ICD-10-PCS; 2017-07-16)
PROC: 07B74ZX Excision of Thorax Lymphatic, Percutaneous Endoscopic Approach, Diagnostic (ICD-10-PCS; principal; 2017-07-16 07:30)
PROC: 0BTJ4ZZ Resection of Left Lower Lung Lobe, Percutaneous Endoscopic Approach (ICD-10-PCS; principal; 2017-07-16 07:30)
PROC: 3E01329 Introduction of Other Anti-infective into Subcutaneous Tissue, Percutaneous Approach (ICD-10-PCS; principal; 2017-07-16 07:30)
PROC: 0B9G8ZZ Drainage of Left Upper Lung Lobe, Via Natural or Artificial Opening Endoscopic (ICD-10-PCS; 2017-07-17)
PROC: 0B9G8ZZ Drainage of Left Upper Lung Lobe, Via Natural or Artificial Opening Endoscopic (ICD-10-PCS; 2017-07-18)
DX: C34.32 Malignant neoplasm of lower lobe, left bronchus or lung (principal); J98.11 Atelectasis; J39.2 Other diseases of pharynx; R59.0 Localized enlarged lymph nodes; F17.210 Nicotine dependence, cigarettes, uncomplicated; J44.9 Chronic obstructive pulmonary disease, unspecified; I10 Essential (primary) hypertension; R73.03 Prediabetes; R73.9 Hyperglycemia, unspecified; G47.00 Insomnia, unspecified; T49.0X5A Adverse effect of local antifungal, anti-infective and anti-inflammatory drugs, initial encounter; E78.5 Hyperlipidemia, unspecified; F41.9 Anxiety disorder, unspecified; L40.9 Psoriasis, unspecified; Z85.44 Personal history of malignant neoplasm of other female genital organs; Z85.79 Personal history of other malignant neoplasms of lymphoid, hematopoietic and related tissues; Z86.73 Personal history of transient ischemic attack (TIA), and cerebral infarction without residual deficits; Z90.49 Acquired absence of other specified parts of digestive tract; Z98.890 Other specified postprocedural states; Z79.1 Long term (current) use of non-steroidal anti-inflammatories (NSAID); Z79.82 Long term (current) use of aspirin; Z79.899 Other long term (current) drug therapy; Z80.0 Family history of malignant neoplasm of digestive organs

== ENCOUNTER → 2017-07-31 | Outpatient (CLI) | payer OTHER ==
--- NOTE | 2017-07-31 09:13 | DIAGNOSTIC IMAGING REPORT ---
CHEST 2 VIEWS ROUTINE CLINICAL HISTORY: R91.1 Pulmonary nodule COMPARISON STUDY: 07/22/2017 FINDINGS: The cardiac and mediastinal contours remain stable. Subcutaneous gas of the left chest wall persists. There are decreasing soft tissue calcifications in the left infra axillary region. There is a persistent small to moderate left pleural effusion. There are resolving left lung airspace opacities. The right lung is clear.[ IMPRESSION: 1. Postsurgical change 2. Persistent left pleural effusion 3. Resolving left lung airspace opacities Electronically signed by: Shawn Reich M.D. 07/31/2017 9:12 AM Dictated Date/Time: 07/31/2017 9:11 AM
== END | disposition home or self-care (01) ==
LOC: C.RAD 08:54
PROVIDERS: ATTEND Surgery
DX: J90 Pleural effusion, not elsewhere classified (principal); R91.1 Solitary pulmonary nodule

== ENCOUNTER → 2017-07-31 | Day surgery (SDC) | payer OTHER ==
[~2017-07-31] VITALS: Ht 157.5 cm; Wt 71.0 kg
[2017-07-31 12:42] VITALS: BP 151/69; PULSE 69; TEMP 36.7; O2SAT 94; Ht 157.5 cm; Wt 71.0 kg
--- NOTE | 2017-07-31 14:07 | Discharge Instructions ---
Discharge Instructions Date of Service Jul 31, 2017. Visit Reason for Visit: Left Pleural Effusion Discharge Discharge Diagnosis / Problem: Left Pleural Effusion Discharge Goals Goal(s): Improve function Activity Recommendations Activity Limitations: resume your previous activity (in 24 hours) Anesthesia . Post Anesthesia Instructions: If you have had General Anesthesia or IV Sedation: * Do not drive today. * Resume driving when surgeon permits. * Do not make important decisions or sign legal documents today. * Call surgeon for: 1. Temperature elevations greater than 101 degrees F. 2. Uncontrollable pain. 3. Excessive bleeding. 4. Persistent nausea and vomiting. 5. Medication intolerance (nausea, vomiting or rash). * For nausea and vomiting use only clear liquids such as: tea, soda, bouillon until nausea subsides, then gradually increase diet as tolerated. * If you have any concerns or questions, call your surgeon's office. If physician is unavailable and it is an emergency, call 911 or go to the nearest emergency room. . Instructions / Follow-Up Instructions / Follow-Up 1. You may remove dressing in 24 hours and shower thereafter. No tub baths. 2. Keep your scheduled appointment with Dr. Haddad on August 06, 2017 @ 1: 45 pm. Go to hospital 1 hour before appointment to have a chest x-ray taken. Diet Recommendations Recommended Home Diet: resume previous diet Pending Studies Studies pending at discharge: no Medical Emergencies . Who to Call and When: Medical Emergencies: If at any time you feel your situation is an emergency, please call 911 immediately. . Non-Emergent Contact Non-Emergency issues call your: Surgeon Call Non-Emergent contact if: you have a fever, your pain is not controlled, wound has increased drainage . . "Provider Documentation" section prepared by Delon Santos. .
--- NOTE | 2017-07-31 14:33 | DIAGNOSTIC IMAGING REPORT ---
CHEST ONE VIEW PORTABLE CLINICAL HISTORY: thoracentesis COMPARISON STUDY: 07/31/2017 FINDINGS: The cardiac and mediastinal contours remain stable. There is interval decrease in the size of the left pleural effusion. There is no pneumothorax.[ There is a small amount of subcutaneous emphysema on the left. There is increased density within the left paramediastinal region superior to the aortic knob. IMPRESSION: 1. Interval decrease in the size of left pleural effusion status post thoracentesis 2. No evidence of pneumothorax Electronically signed by: Shawn Reich M.D. 07/31/2017 2:31 PM Dictated Date/Time: 07/31/2017 2:26 PM
[2017-07-31 14:36] VITALS: BP 132/62; PULSE 82; TEMP 36.8; O2SAT 96
--- NOTE | 2017-07-31 18:26 | OPERATIVE REPORT ---
DATE OF OPERATION: 07/31/2017 PROCEDURE: Left thoracentesis under ultrasound guidance. PREOPERATIVE DIAGNOSIS: Postoperative pleural effusion. POSTOPERATIVE DIAGNOSIS: Same. ANESTHESIA: Local. SPECIFICS OF PROCEDURE: The patient came to the office today and her x-ray showed that she had a bit more fluid in her left pleural cavity after her left lower lobectomy than I would have liked. For this reason, I felt that performing a thoracentesis would be helpful. DESCRIPTION OF PROCEDURE: We saw her in the ambulatory treatment unit and an ultrasound was used to take a window at about the eighth interspace in the left posterior back. She was prepped and draped in usual sterile fashion and after appropriate time out had been called, the 25 gauge needle and 1% Xylocaine with epinephrine used to anesthetize the skin and subcutaneous tissues. A large bore needle was used to anesthetize the deeper subcutaneous tissues including the intercostal muscles and pleura. We had free flowing fluid back and a guidewire was inserted through the needle and needle removed. The dilator sheath was slid over the guidewire and then removed and a triple lumen catheter was slid into 17 cm. We attached this to a vacuum bottle and drained off almost 600 mL of fluid. We sent this off to the lab. We removed the catheter. Her x-ray showed no evidence of pneumothorax and she did have decreased fluid, although she still had some pleural fluid. She tolerated it quite well. We will send her home and see her back in the office next week. I attest to the content of the Intraoperative Record and any orders documented therein. Any exception s are noted below.
== END | disposition home or self-care (01) ==
LOC: C.ACU 12:20
PROVIDERS: ATTEND Surgery
DX: J90 Pleural effusion, not elsewhere classified (principal); F41.9 Anxiety disorder, unspecified; F17.200 Nicotine dependence, unspecified, uncomplicated; E78.5 Hyperlipidemia, unspecified; Z86.73 Personal history of transient ischemic attack (TIA), and cerebral infarction without residual deficits; Z80.0 Family history of malignant neoplasm of digestive organs; Z79.82 Long term (current) use of aspirin; Z79.899 Other long term (current) drug therapy

== ENCOUNTER → 2017-08-06 | Outpatient (CLI) | payer OTHER ==
--- NOTE | 2017-08-06 12:45 | DIAGNOSTIC IMAGING REPORT ---
CHEST 2 VIEWS ROUTINE HISTORY: 72 years-old Female J90 Pleural [id number] follow-up study in a patient with left pleural effusion. History of prior left lower lobectomy COMPARISON: Chest radiograph 07/31/2017 TECHNIQUE: PA and lateral views of the chest FINDINGS: Cardiac silhouette is within normal limits. Atherosclerosis of the aorta. No pneumothorax. The right lung is clear. There is persistent mild left hemidiaphragmatic elevation with left lung volume loss. Small left pleural effusion is again noted without significant change from comparison. Subsegmental left basilar opacities again noted. Mild extra scoliosis of the midthoracic spine. Altered level degenerative changes of the spine are seen along with degenerative changes of the shoulders. Cholecystectomy clips are seen. IMPRESSION: 1. Postsurgical changes of the left lung with left lung volume loss and left hemidiaphragmatic elevation. 2. Unchanged left pleural effusion with left basilar opacities suggesting atelectasis. The above report was generated using voice recognition software. It may contain grammatical, syntax or spelling errors. Electronically signed by: Fran Abbott M.D. 08/06/2017 12:44 PM Dictated Date/Time: 08/06/2017 12:42 PM
== END | disposition home or self-care (01) ==
LOC: C.RAD 12:25
PROVIDERS: ATTEND Physician Assistant
DX: J90 Pleural effusion, not elsewhere classified (principal); Z98.890 Other specified postprocedural states; R91.8 Other nonspecific abnormal finding of lung field

== ENCOUNTER → 2017-10-13 | Outpatient (CLI) | payer OTHER ==
--- NOTE | 2017-10-13 10:08 | DIAGNOSTIC IMAGING REPORT ---
CHEST 2 VIEWS ROUTINE CLINICAL HISTORY: Pleural effusion. Status post left lower lobectomy. COMPARISON STUDY: Chest radiograph August 06, 2017. FINDINGS: A right internal jugular [id number] is in place. Postoperative findings within the left hemithorax with staple lines and volume loss are noted. A small left pleural effusion has decreased in size. August 06, 2017. There is hazy left basilar opacity. Lateral view demonstrates possible small amount of left pleural gas. There is no evidence for pulmonary edema. IMPRESSION: Small left pleural effusion, decreased in size since previous exam. Possible small amount of left pleural gas shown on lateral projection. This is likely artifactual however a hydropneumothorax could have this imaging appearance. Electronically signed by: Javier Najera M.D. 10/13/2017 10:07 AM Dictated Date/Time: 10/13/2017 10:02 AM
== END | disposition home or self-care (01) ==
LOC: C.RAD 09:28
PROVIDERS: ATTEND Surgery
DX: J90 Pleural effusion, not elsewhere classified (principal)